=== PATIENT | female | born 1955 | race Caucasian/White ===

== ENCOUNTER → 2020-07-29 14:54 | Outpatient (BNVA) | payer MEDICARE, OTHER, SELFPAY | PROVIDERS: PCP Internal Medicine; Visit Provider Hospitalist | DX: E88.01 Alpha-1-antitrypsin deficiency (principal); J44.9 Chronic obstructive pulmonary disease, unspecified; R06.00 Dyspnea, unspecified | CPT/HCPCS: 99212 ==

== ENCOUNTER 2020-11-04 13:56 | Outpatient (REF) | payer MEDICARE, OTHER, SELFPAY ==
--- NOTE | ~2020-11-04 | XR_ITS ---
EXAMINATION: XR CHEST CLINICAL INFORMATION: Alpha 1 antitrypsin deficiency COMPARISON: Previous chest x-ray July 2019 TECHNIQUE: 2 views of the chest were obtained. FINDINGS: The cardiac and mediastinal contours are stable. The lungs are clear. There is no pleural effusion or pneumothorax. There is curvature of the midthoracic spine to the right and degenerative change. XR/XR chest 2V IMPRESSION: Unremarkable examination.
[2020-11-04 16:42] LABS: MANUAL DIFF FLAG NO
[2020-11-04 16:51] LABS: Basophils Percent Auto 0.4 % (0-2); Eosinophils Absolute Auto 0.2 X10*3/uL (0.0-0.4); Eosinophils Percent Auto 2.1 % (0-4); Hematocrit 43.2 % (37-47); Imm Gran Abs Auto 0.03 X10*3/uL (0.00-0.03); Imm Gran Pct Auto 0.3 % (0.0-0.4); Lymphocytes Absolute Auto 2.3 X10*3/uL (1.2-4.9); Lymphocytes Percent Auto 24.5 % (20-40); Mean Corpuscular HGB Conc 32.4 g/dl (31.0-35.0); Mean Corpuscular Hemoglobin 29.9 pg (27.0-33.0); Mean Corpuscular Volume 92.3 fL (80-98); Mean Platelet Volume 11.9 fL (9.4-12.3); Monocytes Absolute Auto 0.7 X10*3/uL (0.1-1.2); Monocytes Percent Auto 6.9 % (2-11); Neutrophils Absolute Auto 6.2 X10*3/uL (2.0-8.3); Neutrophils Percent Auto 65.8 % (45-73); Platelet Count 227 X10*3/uL (160-400); Red Blood Count 4.68 X10*6/uL (4.20-5.50); Red Cell Distribution Width 13.8 % (11.0-16.0); White Blood Count 9.4 X10*3/uL (4.8-10.8)
[2020-11-04 17:09] LABS: Alanine Aminotransferase 34 U/L (0-31); Albumin Level 4.4 g/dL (3.5-5.0); Alkaline Phosphatase 88 U/L (39-117); Aspartate Amino Transferase 24 U/L (5-31); Bilirubin Direct 0.3 mg/dL (0.0-0.5); Bilirubin Total 0.7 mg/dL (0.0-1.0); Total Protein 7.4 g/dL (6.5-8.0)
--- NOTE | 2020-11-04 17:45 | PFT_ITS ---
INDICATION: Alpha-1 antitrypsin deficiency. SPIROMETRY: The FEV1 to FVC of 77% with an FEV1 of 2.3 L, which is 70% predicted, and an FVC of 2.99 L, which is 69% predicted. No significant response to bronchodilators noted. Maximum voluntary ventilation 105% predicted. LUNG VOLUMES: Total lung capacity 84% predicted. DIFFUSION CAPACITY: DLCO 65% predicted. COMPARISON: PFTs from September 30, 2019. INTERPRETATION: No obstructive nor restrictive ventilatory defects identified. No significant response to bronchodilators noted. Normal maximum voluntary ventilation. Lung volumes do demonstrate low normal total lung capacity, and a decreased expiratory reserve volume secondary to an elevated BMI. The patient also has a mild diffusion impairment. When compared to 2019, there is a trend decrease in the FVC, trend increase in the FEV1, significant decrease in the total lung capacity, and a trend increase improvement on her diffusion capacity. Clinical correlation warranted. MD LILO Morales/SANDIE / [id number]
[2020-11-04 17:59] LABS: Erythrocyte Sedimentation Rate 11 MM/HR (0-20)
[2020-11-07 17:46] LABS: Alpha 1 Anti-trypsin 107 mg/dL (83-199)
[2020-11-08 20:22] LABS: Immunoglobulin E 188 kU/L (<OR=114)
== END 2020-11-04 13:57 | disposition home or self-care (01) ==
LOC: HO.RESP 13:56
PROVIDERS: PCP Physician Assistant Medical; Visit Provider Hospitalist
DX: J44.9 Chronic obstructive pulmonary disease, unspecified (principal)
CPT/HCPCS: 36415; 71046; 80076; 82103; 82785; 85025; 85652; 94060; 94727; 94729; 99212

== ENCOUNTER → 2021-05-19 15:02 | Outpatient (BNVA) | payer MEDICARE, OTHER, SELFPAY | PROVIDERS: PCP Physician Assistant Medical; Visit Provider Hospitalist | DX: R06.00 Dyspnea, unspecified (principal); R91.8 Other nonspecific abnormal finding of lung field; J41.0 Simple chronic bronchitis; E88.01 Alpha-1-antitrypsin deficiency; M79.89 Other specified soft tissue disorders | CPT/HCPCS: 99212 ==

== ENCOUNTER 2021-06-09 12:56 | Outpatient (REF) | payer MEDICARE, OTHER, SELFPAY ==
--- NOTE | ~2021-06-09 | CT_ITS ---
EXAMINATION: CT CHEST WITHOUT CONTRAST CLINICAL INFORMATION: Alpha-1 antitrypsin deficiency COMPARISON: Previous chest x-ray most recent October 2020 TECHNIQUE: Multidetector volumetric CT imaging of the chest was done. Axial MIP volume rendering provided. Sagittal and coronal reformatted images were obtained. This CT examination was performed using dose optimization techniques as appropriate, variously including the following: *Automated exposure control *Adjustment of mA and/or kV according to patient size (this includes techniques or standardized protocols for targeted exams where dose is matched to indication/reason for exam; i.e. extremities or head) *Use of iterative reconstruction technique DLP: 382 mGy-cm FINDINGS: LUNGS: There is a 3 mm perivascular left upper lobe nodule axial image 281 series 7. There is a 2 mm right lower lobe nodule axial image 376 series 7. There is a 2 mm right lower lobe nodule axial image 280 series 7. There is subsegmental atelectasis seen at the lung bases. The lungs are otherwise clear. No evidence of emphysema, interstitial lung disease or bronchiectasis is seen. MEDIASTINUM: The heart does not appear enlarged. There is no pericardial effusion. There is mild coronary artery and aortic valve calcification. The thoracic aorta is normal in caliber but tortuous. There are no enlarged hilar or mediastinal lymph nodes. The visualized thyroid gland is unremarkable. PLEURA: There is no pleural effusion. No pleural mass or thickening. AXILLA: No lymphadenopathy. UPPER ABDOMEN: Unremarkable. OSSEOUS STRUCTURES: There are degenerative changes of the thoracic spine and curvature to the right. CT/CT chest wo con IMPRESSION: No evidence of emphysema. Small pulmonary nodules or micronodules, largest measuring 3 mm in the left upper lobe. According to the UPDATED 2017 Fleischner Society recommendations, the advised follow-up imaging for less than 6 mm nodule: Low risk, no chest CT follow-up and high risk, optional chest CT follow-up in one year. Mild coronary artery and aortic valve calcification.
== END 2021-06-09 12:57 | disposition home or self-care (01) ==
LOC: HO.CT 12:56
PROVIDERS: PCP Physician Assistant Medical; Visit Provider Hospitalist
DX: R91.8 Other nonspecific abnormal finding of lung field (principal); E88.01 Alpha-1-antitrypsin deficiency
CPT/HCPCS: 71250

== ENCOUNTER → 2021-11-17 13:02 | Outpatient (BNVA) | payer MEDICARE, OTHER, SELFPAY | PROVIDERS: PCP Physician Assistant Medical; Visit Provider Hospitalist | DX: J41.0 Simple chronic bronchitis (principal); R06.00 Dyspnea, unspecified; R91.8 Other nonspecific abnormal finding of lung field; M79.89 Other specified soft tissue disorders; E88.01 Alpha-1-antitrypsin deficiency; Z79.899 Other long term (current) drug therapy | CPT/HCPCS: 99212 ==

== ENCOUNTER 2022-05-17 08:57 | Outpatient (REF) | payer MEDICARE, OTHER, SELFPAY | END 2022-05-17 08:58 | disposition home or self-care (01) | LOC: HO.CT 08:57 | PROVIDERS: Visit Provider Hospitalist | DX: R91.8 Other nonspecific abnormal finding of lung field (principal) | CPT/HCPCS: 71250 ==

== ENCOUNTER → 2022-06-15 13:09 | Outpatient (BNVA) | payer MEDICARE, OTHER, SELFPAY | PROVIDERS: PCP Physician Assistant Medical; Visit Provider Hospitalist | DX: R06.00 Dyspnea, unspecified (principal); R91.8 Other nonspecific abnormal finding of lung field; J41.0 Simple chronic bronchitis; E88.01 Alpha-1-antitrypsin deficiency; M79.89 Other specified soft tissue disorders; Z87.891 Personal history of nicotine dependence | CPT/HCPCS: 99212 ==

== ENCOUNTER 2023-06-14 07:19 | Outpatient (REF) | payer MEDICARE, OTHER, SELFPAY ==
--- NOTE | ~2023-06-14 | CT_ITS ---
EXAMINATION: CT CHEST WITHOUT CONTRAST CLINICAL INFORMATION: Follow-up pulmonary nodule COMPARISON: Previous chest CT most recent May 2022 TECHNIQUE: Multidetector volumetric CT imaging of the chest was done. Axial MIP volume rendering provided. Sagittal and coronal reformatted images were obtained. This CT examination was performed using dose optimization techniques as appropriate, variously including the following: *Automated exposure control *Adjustment of mA and/or kV according to patient size (this includes techniques or standardized protocols for targeted exams where dose is matched to indication/reason for exam; i.e. 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 The small pulmonary nodules are otherwise stable. There is increasing subsegmental atelectasis at the lung bases. MEDIASTINUM: Increasing now small to moderate size pericardial effusion. Normal heart size. Coronary artery and aortic valve calcified. Small mediastinal lymph nodes. No enlarged lymph nodes. CORONARY ARTERY CALCIFICATION: Mild to moderate PLEURA: There is no pleural effusion. No pleural mass or thickening. AXILLA: No lymphadenopathy. UPPER ABDOMEN: Unremarkable. OSSEOUS STRUCTURES: Degenerative changes of the spine. Curvature of the thoracic spine to the right. CT/CT chest wo IV con IMPRESSION: New small clustered heterogeneous right upper lobe nodules. These may represent tree-in-bud appearance or airways disease. Otherwise pulmonary nodules are stable. Increasing bibasilar subsegmental atelectasis. Increasing now small to moderate size pericardial effusions. Fleischner guidelines were followed.
== END 2023-06-14 07:20 | disposition home or self-care (01) ==
LOC: HO.CT 07:19
PROVIDERS: PCP Physician Assistant Medical; Visit Provider Hospitalist
DX: R91.8 Other nonspecific abnormal finding of lung field (principal)
CPT/HCPCS: 71250

== ENCOUNTER 2023-08-15 12:59 | Outpatient (AMB) | payer MEDICARE, OTHER, SELFPAY ==
--- NOTE | 2023-08-15 13:03 | MHC.OFFVIS ---
Intake Vital Signs 08/15/23 13:04 Height 6 ft 1 in Weight 285 lb BMI 37.6 BP 132/78 Blood Pressure Location Rt brachial Position Sitting Pulse 67 Pulse Source Pulse Oximeter Pulse Oximetry (%) 98 Oxygen Delivery Method Room Air Intake Visit Reasons: pulmonary nodule Allergies No Known Allergies Allergy (Verified 08/15/23 13:07) HPI HPI Comments History of Present Illness Details The patient is a 68-year-old woman with known alpha-1 antitrypsin deficiency with MZ. She has been doing well on the current respiratory regimen. She has tried multiple inhalers but Advair Diskus works best for her. She did have a recent respiratory illness requiring a Z-Jose Luis in addition to a prednisone taper about a month ago. More recently after the holiday she was exposed to all the sick contact now has nasal congestion and runny nose. She continues use her respiratory inhalers as prescribed. She hasn't had breathing studies in more than a year. Will also have her check her off 1 levels when she recovers from her current illness. She did have an EKG which demonstrated some decreased conduction of the anterior precordial leads. The patient denies having a cardiac history or any cardiac symptoms. She has noticed some increased lower extremity edema. 08/15/2023 the patient is here for a pulmonary follow-up visit. Overall the patient is feeling better. She has had a very eventful year. Back over the summer she did have a total knee replacement. She tolerated the surgery well. Subsequently after that she developed atrial fibrillation and has required multiple cardioversions for that. She also underwent a recent cardiac ablation. she was also placed on amiodarone. Her amiodarone dose was increased a couple times but now back to a lower dose of 200 mg daily. The patient is aware that she has underlying pulmonary disease and needs to be very careful with high doses of amiodarone. The patient will have close monitoring for me but also should have liver and thyroid testing by the prescriber. In meantime we did review her last CT scan of the chest done in June 2023 demonstrating new pulmonary nodules in the right upper lobe area. In addition to that the patient does have a nszy-fk-ocatitda pericardial effusion. She did have an echocardiogram and this visit being followed. She actually try to have that drained but during the procedure she did not have enough fluid to drain. Therefore the procedure was terminated. She continues use her respiratory therapy with good effect. She is responded well to Trelegy. She has not using her rescue inhaler based on the fact that she has the atrial fibrillation now. She does continue to use the Daliresp. She has also had significant weight loss which is been very helpful in her recovery process. Will continue with current respiratory regimen. Will follow-up in 6 months' time. . [facility] Medical History (Updated 08/15/23 @ 20:00 by Felipe Ibarra MD) Afib Pulmonary nodules Abnormality of lung on chest x-ray Limb swelling Dyspnea COPD (chronic obstructive pulmonary disease) Qkzwt-2-ffzaordwulg deficiency Surgical History (Updated 08/15/23 @ 13:16 by Felipe Ibarra MD) Total knee replacement status Social History (Updated 11/20/21 @ 14:44 by Mckenzie Davila [facility]) Patient Tobacco Use Status: Former Tobacco user Tobacco use type: Cigarette Years Smoked: 25 years Review of Systems Const Denies night sweats and Reports weight loss ENT Denies change in voice, Denies lip swelling, Denies mouth pain, Reports nasal congestion, Reports nasal discharge and Denies tongue swelling Card Denies chest pain, Reports leg edema, Reports palpitations and Reports dyspnea on exertion Resp Reports cough and Reports dyspnea on exertion GI Denies abdominal pain Musc Denies no additional complaints Neuro Denies Neuro-related abnormal movements Psych Denies no additional complaints Endo Reports palpitations Oleg/Lymph Denies easy bleeding and Denies lymphadenopathy Aller/Immun Denies lip swelling and Denies tongue swelling Physical Exam Vital Signs: Last Vital Signs Pulse 67 08/15/23 13:04 BP 132/78 08/15/23 13:04 Pulse Ox 98 08/15/23 13:04 Oxygen Delivery Method Room Air 08/15/23 13:04 BMI result Body Mass Index 37.6 Const General: alert Neck Neck: Yes normal visual inspection, Yes full ROM and Yes no lymphadenopathy Chest Chest palpation & inspection: normal inspection of the chest Resp Auscultation: diminished lung sounds Cardio Rate: regular rate Rhythm: regular rhythm Heart sounds: S1 normal heart sound present and S2 normal heart sound present GI Palpation (GI): Soft to palpation and nontender Auscultation: normal bowel sounds Skin General skin exam: rashes and/or lesions noted Results Reviewed Results Reviewed: [address] [address] [address] Scan Report Signed Patient: Aby Walsh MR#: [id number] : 1955 Acct:[id number] Age/Sex: 68 / F ADM Date: 06/14/23 Loc: HO.CT Attending Dr: Felipe Ibarra MD Ordering Physician: Felipe Ibarra MD Date of Service: 06/14/23 Procedure(s): CT chest wo IV con Accession Number(s): [id number] cc: Felipe Ibarra MD; Jose Arvizu~ EXAMINATION: CT CHEST WITHOUT CONTRAST CLINICAL INFORMATION: Follow-up pulmonary nodule COMPARISON: Previous chest CT most recent May 2022 TECHNIQUE: Multidetector volumetric CT imaging of the chest was done. Axial MIP volume rendering provided. Sagittal and coronal reformatted images were obtained. This CT examination was performed using dose optimization techniques as appropriate, variously including the following: *Automated exposure control *Adjustment of mA and/or kV according to patient size (this includes techniques or standardized protocols for targeted exams where dose is matched to indication/reason for exam; i.e. 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 The small pulmonary nodules are otherwise stable. There is increasing subsegmental atelectasis at the lung bases. MEDIASTINUM: Increasing now small to moderate size pericardial effusion. Normal heart size. Coronary artery and aortic valve calcified. Small mediastinal lymph nodes. No enlarged lymph nodes. CORONARY ARTERY CALCIFICATION: Mild to moderate PLEURA: There is no pleural effusion. No pleural mass or thickening. AXILLA: No lymphadenopathy. UPPER ABDOMEN: Unremarkable. OSSEOUS STRUCTURES: Degenerative changes of the spine. Curvature of the thoracic spine to the right. CT/CT chest wo IV con IMPRESSION: New small clustered heterogeneous right upper lobe nodules. These may represent tree-in-bud appearance or airways disease. Otherwise pulmonary nodules are stable. Increasing bibasilar subsegmental atelectasis. Increasing now small to moderate size pericardial effusions. Fleischner guidelines were followed. Dictated By: Julia Vazquez MD Signed By: <Electronically signed by Julia Vazquez MD in [place]> 06/14/23 1042 DD/ 0801 TD/TT: Cake Cutter Machine: DAIN Assessment & Plan Assessment & Plan (1) Dyspnea: Code(s): R06.00 - Dyspnea, unspecified Qualifiers: Dyspnea type: dyspnea on exertion Qualified Code(s): R06.00 - Dyspnea, unspecified (2) COPD (chronic obstructive pulmonary disease): Code(s): J44.9 - Chronic obstructive pulmonary disease, unspecified Qualifiers: COPD type: chronic bronchitis Chronic bronchitis type: simple Qualified Code(s): J41.0 - Simple chronic bronchitis (3) Alncg-0-grohvklpsqe deficiency: Code(s): E88.01 - Prcwk-6-ntseqwouozd deficiency (4) Limb swelling: Code(s): M79.89 - Other specified soft tissue disorders (5) Pulmonary nodules: Comment: new nodules RUL Code(s): R91.8 - Other nonspecific abnormal finding of lung field (6) Afib: Code(s): I48.91 - Unspecified atrial fibrillation Qualifiers: Atrial fibrillation type: paroxysmal Qualified Code(s): I48.0 - Paroxysmal atrial fibrillation Plan On Amiodaone, no evidence of any significant pneumonitis. Needs to keep an eye on Thyroid and liver involvement Contine Trelegy continue Daliresp 500mcg Weight management Compression stockings 20-[address] scan of the chest in 1 year Bloodwork during the next visit F/U 6 months Orders: Orders Erythrocyte Sedimentation Rate Today E88.01 - Gadrs-2-ykzgbydcbpn deficiency, J44.9 - Chronic obstructive pulmonary disease, unspecified Alpha 1 Anti-trypsin Today E88.01 - Lltls-4-bjqbkbmbkaz deficiency, J44.9 - Chronic obstructive pulmonary disease, unspecified Coding Level of Care Code Est Pt Level 4 (49776) Diagnoses Dyspnea on exertion R06.00 Dyspnea type: dyspnea on exertion Simple chronic bronchitis J41.0 COPD type: chronic bronchitis Chronic bronchitis type: simple Klorc-3-kdeweopwwmx deficiency E88.01 Limb swelling M79.89 Pulmonary nodules R91.8 Paroxysmal atrial fibrillation I48.0 Atrial fibrillation type: paroxysmal Time Spent (min) 17
[2023-08-15 13:04] VITALS: BP 132/78; PULSE 67; O2SAT 98; BMI 37.6
== END 2023-08-15 13:34 | disposition home or self-care (01) ==
PROVIDERS: PCP Physician Assistant Medical; Visit Provider Hospitalist
DX: R06.00 Dyspnea, unspecified (principal); J41.0 Simple chronic bronchitis; E88.01 Alpha-1-antitrypsin deficiency; M79.89 Other specified soft tissue disorders; R91.8 Other nonspecific abnormal finding of lung field; I48.0 Paroxysmal atrial fibrillation
CPT/HCPCS: 99214

== ENCOUNTER → 2023-08-15 12:59 | Outpatient (BNVA) | payer MEDICARE, OTHER, SELFPAY | PROVIDERS: PCP Physician Assistant Medical; Visit Provider Hospitalist | DX: R91.8 Other nonspecific abnormal finding of lung field (principal); J41.0 Simple chronic bronchitis; E88.01 Alpha-1-antitrypsin deficiency; R06.00 Dyspnea, unspecified; M79.89 Other specified soft tissue disorders; I48.0 Paroxysmal atrial fibrillation | CPT/HCPCS: 99212 ==

== ENCOUNTER 2024-02-20 12:40 | Outpatient (AMB) | payer MEDICARE, OTHER, SELFPAY ==
[2024-02-20 12:58] VITALS: PULSE 89; O2SAT 96; BMI 37.6
--- NOTE | 2024-02-20 12:58 | MHC.OFFVIS ---
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 She has been doing well on the current respiratory regimen. She has tried multiple inhalers but Advair Diskus works best for her. She did have a recent respiratory illness requiring a Z-Jose Luis in addition to a prednisone taper about a month ago. More recently after the holiday she was exposed to all the sick contact now has nasal congestion and runny nose. She continues use her respiratory inhalers as prescribed. She hasn't had breathing studies in more than a year. Will also have her check her off 1 levels when she recovers from her current illness. She did have an EKG which demonstrated some decreased conduction of the anterior precordial leads. The patient denies having a cardiac history or any cardiac symptoms. She has noticed some increased lower extremity edema. 08/15/2023 the patient is here for a pulmonary follow-up visit. Overall the patient is feeling better. She has had a very eventful year. Back over the summer she did have a total knee replacement. She tolerated the surgery well. Subsequently after that she developed atrial fibrillation and has required multiple cardioversions for that. She also underwent a recent cardiac ablation. she was also placed on amiodarone. Her amiodarone dose was increased a couple times but now back to a lower dose of 200 mg daily. The patient is aware that she has underlying pulmonary disease and needs to be very careful with high doses of amiodarone. The patient will have close monitoring for me but also should have liver and thyroid testing by the prescriber. In meantime we did review her last CT scan of the chest done in June 2023 demonstrating new pulmonary nodules in the right upper lobe area. In addition to that the patient does have a nfxb-fl-iwbyxqsd pericardial effusion. She did have an echocardiogram and this visit being followed. She actually try to have that drained but during the procedure she did not have enough fluid to drain. Therefore the procedure was terminated. She continues use her respiratory therapy with good effect. She is responded well to Trelegy. She has not using her rescue inhaler based on the fact that she has the atrial fibrillation now. She does continue to use the Daliresp. She has also had significant weight loss which is been very helpful in her recovery process. Will continue with current respiratory regimen. Will follow-up in 6 months' time. 02/20/2024 the patient is here for a pulmonary follow-up visit. Overall she is doing well. She has off the amiodarone. She has been normal sinus mechanism which is reassuring. She is following closely with Cardiology. The patient is doing well on the current respiratory regimen. She has avoiding the short-acting beta agonist because of her atrial fibrillation. She can always consider muscarinic antagonist short-acting as needed. I will provide her with a sample of ipratropium for her nebulizer to use as needed. In the meantime the patient did have a CT scan of the chest back in 07/01/2023 demonstrating stable pulmonary nodules. Will go ahead and repeat the CT scan in a year's time. She will continue with the current respiratory regimen. When she returns will go ahead and repeat her alpha-1 levels. Her alpha-1 levels have been reasonable. She does have alpha-1 antitrypsin deficiency. Otherwise patient is without any other complaints. She is losing weight. . [facility] Medical History (Updated 02/20/24 @ 13:07 by Felipe Ibarra MD) Afib Pulmonary nodules Abnormality of lung on chest x-ray Limb swelling Dyspnea COPD (chronic obstructive pulmonary disease) Xghoz-3-wfqketrrhee deficiency Surgical History (Updated 08/15/23 @ 13:16 by Felipe Ibarra MD) Total knee replacement status Social History (Updated 11/20/21 @ 14:44 by Mckenzie Davila [facility]) Patient Tobacco Use Status: Former Tobacco user Tobacco use type: Cigarette Years Smoked: 25 years Review of Systems Const Denies night sweats and Reports weight loss ENT Denies change in voice, Denies lip swelling, Denies mouth pain, Reports nasal congestion, Reports nasal discharge and Denies tongue swelling Card Denies chest pain, Reports leg edema and Reports dyspnea on exertion Resp Reports cough and Reports dyspnea on exertion GI Denies abdominal pain Musc Denies no additional complaints Neuro Denies Neuro-related abnormal movements Psych Denies no additional complaints Oleg/Lymph Denies easy bleeding and Denies lymphadenopathy Aller/Immun Denies lip swelling and Denies tongue swelling Physical Exam Vital Signs: Last Vital Signs Pulse 89 02/20/24 12:58 Pulse Ox 96 02/20/24 12:58 Oxygen Delivery Method Room Air 02/20/24 12:58 BMI result Body Mass Index 37.6 Const General: alert Neck Neck: Yes normal visual inspection, Yes full ROM and Yes no lymphadenopathy Chest Chest palpation & inspection: normal inspection of the chest Resp Auscultation: diminished lung sounds Cardio Rate: regular rate Rhythm: regular rhythm Heart sounds: S1 normal heart sound present and S2 normal heart sound present GI Palpation (GI): Soft to palpation and nontender Auscultation: normal bowel sounds Skin General skin exam: rashes and/or lesions noted Assessment & Plan Assessment & Plan (1) Dyspnea: Code(s): R06.00 - Dyspnea, unspecified Category: Medical Qualifiers: Dyspnea type: dyspnea on exertion Qualified Code(s): R06.00 - Dyspnea, unspecified (2) COPD (chronic obstructive pulmonary disease): Code(s): J44.9 - Chronic obstructive pulmonary disease, unspecified Category: Medical Qualifiers: COPD type: chronic bronchitis Chronic bronchitis type: simple Qualified Code(s): J41.0 - Simple chronic bronchitis (3) Lkmvz-6-tlffcdzthob deficiency: Code(s): E88.01 - Xtryd-6-tnfykhozzke deficiency Category: Medical (4) Limb swelling: Code(s): M79.89 - Other specified soft tissue disorders Category: Medical (5) Pulmonary nodules: Comment: new nodules RUL Code(s): R91.8 - Other nonspecific abnormal finding of lung field Category: Medical (6) Afib: Comment: s/p amiodarone Code(s): I48.91 - Unspecified atrial fibrillation Category: Medical Qualifiers: Atrial fibrillation type: paroxysmal Qualified Code(s): I48.0 - Paroxysmal atrial fibrillation Plan Off the Amiodaone Contine Trelegy continue Daliresp 500mcg Weight management Compression stockings 20-[address] scan of the chest in 1 year Bloodwork during the next visit F/U 12 months Coding Level of Care Code Est Pt Level 4 (50348) Diagnoses Dyspnea on exertion R06.00 Dyspnea type: dyspnea on exertion Simple chronic bronchitis J41.0 COPD type: chronic bronchitis Chronic bronchitis type: simple Zbyxo-4-yycosaqlwwx deficiency E88.01 Limb swelling M79.89 Pulmonary nodules R91.8 Paroxysmal atrial fibrillation I48.0 Atrial fibrillation type: paroxysmal Time Spent (min) 16
== END 2024-02-20 13:19 | disposition home or self-care (01) ==
PROVIDERS: PCP Physician Assistant Medical; Visit Provider Hospitalist
DX: R06.00 Dyspnea, unspecified (principal); J41.0 Simple chronic bronchitis; E88.01 Alpha-1-antitrypsin deficiency; M79.89 Other specified soft tissue disorders; R91.8 Other nonspecific abnormal finding of lung field; I48.0 Paroxysmal atrial fibrillation
CPT/HCPCS: 99214

== ENCOUNTER → 2024-02-20 12:40 | Outpatient (BNVA) | payer MEDICARE, OTHER, SELFPAY | PROVIDERS: PCP Physician Assistant Medical; Visit Provider Hospitalist | DX: R91.8 Other nonspecific abnormal finding of lung field (principal); R06.00 Dyspnea, unspecified; J41.0 Simple chronic bronchitis; E88.01 Alpha-1-antitrypsin deficiency; M79.89 Other specified soft tissue disorders; I48.0 Paroxysmal atrial fibrillation | CPT/HCPCS: 99212 ==

== ENCOUNTER 2024-10-09 08:58 | Outpatient (AMB) | payer MEDICARE, OTHER, SELFPAY ==
--- NOTE | 2024-10-09 09:02 | MHC.OFFVIS ---
Vital Signs 10/09/24 09:03 Height 6 ft 1 in Weight 284 lb 6.341 oz BMI 37.5 BP 130/72 Blood Pressure Location Rt brachial Position Sitting Pulse 84 Pulse Source Pulse Oximeter Pulse Oximetry (%) 99 Oxygen Delivery Method Room Air Intake Visit Reasons: 6 month spot actually 7 months Allergies No Known Allergies Allergy (Verified 10/09/24 09:05) HPI Comments Details: The patient is a 69-year-old woman with known alpha-1 antitrypsin deficiency with MZ. She has been doing well on the current respiratory regimen. She has tried multiple inhalers but Advair Diskus works best for her. She did have a recent respiratory illness requiring a Z-Jose Luis in addition to a prednisone taper about a month ago. More recently after the holiday she was exposed to all the sick contact now has nasal congestion and runny nose. She continues use her respiratory inhalers as prescribed. She hasn't had breathing studies in more than a year. Will also have her check her off 1 levels when she recovers from her current illness. She did have an EKG which demonstrated some decreased conduction of the anterior precordial leads. The patient denies having a cardiac history or any cardiac symptoms. She has noticed some increased lower extremity edema. 08/15/2023 the patient is here for a pulmonary follow-up visit. Overall the patient is feeling better. She has had a very eventful year. Back over the summer she did have a total knee replacement. She tolerated the surgery well. Subsequently after that she developed atrial fibrillation and has required multiple cardioversions for that. She also underwent a recent cardiac ablation. she was also placed on amiodarone. Her amiodarone dose was increased a couple times but now back to a lower dose of 200 mg daily. The patient is aware that she has underlying pulmonary disease and needs to be very careful with high doses of amiodarone. The patient will have close monitoring for me but also should have liver and thyroid testing by the prescriber. In meantime we did review her last CT scan of the chest done in June 2023 demonstrating new pulmonary nodules in the right upper lobe area. In addition to that the patient does have a jytq-nt-ggmjhiti pericardial effusion. She did have an echocardiogram and this visit being followed. She actually try to have that drained but during the procedure she did not have enough fluid to drain. Therefore the procedure was terminated. She continues use her respiratory therapy with good effect. She is responded well to Trelegy. She has not using her rescue inhaler based on the fact that she has the atrial fibrillation now. She does continue to use the Daliresp. She has also had significant weight loss which is been very helpful in her recovery process. Will continue with current respiratory regimen. Will follow-up in 6 months' time. 02/20/2024 the patient is here for a pulmonary follow-up visit. Overall she is doing well. She has off the amiodarone. She has been normal sinus mechanism which is reassuring. She is following closely with Cardiology. The patient is doing well on the current respiratory regimen. She has avoiding the short-acting beta agonist because of her atrial fibrillation. She can always consider muscarinic antagonist short-acting as needed. I will provide her with a sample of ipratropium for her nebulizer to use as needed. In the meantime the patient did have a CT scan of the chest back in 07/01/2023 demonstrating stable pulmonary nodules. Will go ahead and repeat the CT scan in a year's time. She will continue with the current respiratory regimen. When she returns will go ahead and repeat her alpha-1 levels. Her alpha-1 levels have been reasonable. She does have alpha-1 antitrypsin deficiency. Otherwise patient is without any other complaints. She is losing weight. 10/09/2024 the patient is here for a pulmonary follow-up visit. Overall she is doing good from respiratory status. She did get her ablation for the AFib and has been good. The patient also has been continue her respiratory therapy with good effect. She tolerates her Daliresp very well. The patient did have a CT scan back in 2022 which we personally reviewed demonstrating pulmonary nodules. Because of her increased risk of cancer she should have reviewed CT scan at this time. The patient is also taking care of her was recently diagnosed with lung cancer and apparently is going to need surgery for. When she comes in for CT scan I did request that she get blood work including an alpha-1 level in addition to LFTs to make sure the alpha-1 antitrypsin deficiency is stable. . [facility] Medical History (Updated 02/20/24 @ 13:07 by Felipe Ibarra MD) Afib Pulmonary nodules Abnormality of lung on chest x-ray Limb swelling Dyspnea COPD (chronic obstructive pulmonary disease) Iyinv-1-nwkalmvajrx deficiency Surgical History (Updated 08/15/23 @ 13:16 by Felipe Iabrra MD) Total knee replacement status Social History Patient Tobacco Use Status: Former Tobacco user Tobacco use type: Cigarette Years Smoked: 25 years Review of Systems Const Denies night sweats and Reports weight loss ENT Denies change in voice, Denies lip swelling, Denies mouth pain, Reports nasal congestion, Reports nasal discharge and Denies tongue swelling Card Denies chest pain, Reports leg edema and Reports dyspnea on exertion Resp Reports cough and Reports dyspnea on exertion GI Denies abdominal pain Musc Denies no additional complaints Skin/Breast Denies rash Neuro Denies Neuro-related abnormal movements Psych Denies no additional complaints Oleg/Lymph Denies easy bleeding and Denies lymphadenopathy Aller/Immun Denies lip swelling and Denies tongue swelling Physical Exam Vital Signs: Last Vital Signs Pulse 84 10/09/24 09:03 BP 130/72 10/09/24 09:03 Pulse Ox 99 10/09/24 09:03 Oxygen Delivery Method Room Air 10/09/24 09:03 BMI result Body Mass Index 37.5 Const General: alert Neck Neck: Yes normal visual inspection, Yes full ROM and Yes no lymphadenopathy Chest Chest palpation & inspection: normal inspection of the chest Resp Auscultation: diminished lung sounds Cardio Rate: regular rate Rhythm: regular rhythm Heart sounds: S1 normal heart sound present and S2 normal heart sound present GI Palpation (GI): Soft to palpation and nontender Auscultation: normal bowel sounds Skin General skin exam: rashes and/or lesions noted Assessment & Plan Assessment & Plan (1) Dyspnea: Code(s): R06.00 - Dyspnea, unspecified Category: Medical Qualifiers: Dyspnea type: dyspnea on exertion Qualified Code(s): R06.00 - Dyspnea, unspecified (2) COPD (chronic obstructive pulmonary disease): Code(s): J44.9 - Chronic obstructive pulmonary disease, unspecified Category: Medical Qualifiers: COPD type: chronic bronchitis Chronic bronchitis type: simple Qualified Code(s): J41.0 - Simple chronic bronchitis (3) Nubpm-6-dnkydurlkjz deficiency: Code(s): E88.01 - Rlmtl-3-ajvydfgifeo deficiency Category: Medical (4) Limb swelling: Code(s): M79.89 - Other specified soft tissue disorders Category: Medical (5) Pulmonary nodules: Comment: new nodules RUL Code(s): R91.8 - Other nonspecific abnormal finding of lung field Category: Medical (6) Afib: Comment: s/p amiodarone Code(s): I48.91 - Unspecified atrial fibrillation Category: Medical Qualifiers: Atrial fibrillation type: paroxysmal Qualified Code(s): I48.0 - Paroxysmal atrial fibrillation Plan Off the Amiodaone Continue Trelegy continue Daliresp 500mcg Weight management Compression stockings 20-[address] scan of the chest Bloodwork during the next visit F/U 12 months Orders: Orders Basic Metabolic Panel 10/09/24 E88.01 - Kzkmm-5-vfquhsocsok deficiency, R91.8 - Other nonspecific abnormal finding of lung field CT chest wo IV con 10/09/24 R91.8 - Other nonspecific abnormal finding of lung field Alpha 1 Anti-trypsin 10/09/24 E88.01 - Cwixx-0-uzoftwhzgxp deficiency, R91.8 - Other nonspecific abnormal finding of lung field Liver Panel 10/09/24 E88.01 - Daohf-3-pltztoctgel deficiency, R91.8 - Other nonspecific abnormal finding of lung field Coding Level of Care Code Est Pt Level 4 (28687) Diagnoses Dyspnea on exertion R06.00 Dyspnea type: dyspnea on exertion Simple chronic bronchitis J41.0 COPD type: chronic bronchitis Chronic bronchitis type: simple Efbts-6-lbdxjzydaou deficiency E88.01 Limb swelling M79.89 Pulmonary nodules R91.8 Paroxysmal atrial fibrillation I48.0 Atrial fibrillation type: paroxysmal Time Spent (min) 17
[2024-10-09 09:03] VITALS: BP 130/72; PULSE 84; O2SAT 99; BMI 37.5
--- OUTSIDE RECORDS SUMMARY | 2024-10-09 09:22 | XMS_ITS | Clinical Summary ---
Author Organization [facility] Address [address] [place] [address] Care Team Providers Care Therapy Teacher Name Role Phone Jose Arvizu PA-C Primary Care Provider Allergies No known active allergies Medications Medication Sig Dispensed Refills Start Date End Date Status losartan (COZAAR) 100 MG tablet Take 100 mg by mouth daily. 5 03/08/2018 Active metFORMIN (GLUCOPHAGE) tablet 500 mg TAKE 1 TABLET BY MOUTH TWICE A DAY WITH FOOD 3 03/07/2018 Active montelukast (SINGULAIR) 10 MG tablet Take 10 mg by mouth every evening. 3 07/20/2018 Active omeprazole (PriLOSEC) 20 MG capsule TAKE 1 CAPSULE BY MOUTH EVERY DAY FOR 360 DAYS 5 07/09/2018 Active zolpidem (AMBIEN) 5 MG tablet Take 5 mg by mouth every night at bedtime as needed. for insomnia 0 08/06/2018 Active ezetimibe (ZETIA) tablet 10 mg Take 1 tablet (10 mg total) by mouth daily. 0 05/07/2022 Active Trelegy Ellipta 200-62.5-25 MCG/ACT AEPB INHALE 1 PUFF ONCE DAILY FOR 30 DAYS 0 05/26/2022 Active traMADol (ULTRAM) 50 MG tablet Take 1 tab every 8 hours as needed for pain 50 tablet 0 08/22/2022 Active Family History Medical History Relation Name Comments Hypertension Brother Hypertension Sister Relation Name Status Comments Brother Sister Social History Tobacco Use Types Packs/Day Years Used Date Smoking Tobacco: Never Assessed Sex and Gender Information Value Date Recorded Sex Assigned at Not on file Gender Identity Not on file Sexual Orientation Not on file Job Start Date Occupation Industry Not on file Not on file Not on file Last Filed Vital Signs Vital Sign Reading Time Taken Comments Blood Pressure - - Pulse - - Temperature - - Respiratory Rate - - Oxygen Saturation - - Inhaled Oxygen Concentration - - Weight 131.5 kg (290 lb) 07/25/2022 1:49 PM EST Height 185.4 cm (6' 1 ) 07/25/2022 1:49 PM EST Body Mass Index 38.26 07/25/2022 1:49 PM EST Plan of Treatment Health Maintenance Due Date Last Done Comments Hepatitis C Screening 1954 Depression Screening 1966 BMI Counseling 1972 Preventative Health Evaluation 1972 Colon Cancer Screening (Colonoscopy) 1999 Breast Cancer Screening (Mammogram) 2004 Fall Risk Assessment 2019 Osteoporosis Screening (DEXA Scan) 2019 COVID-19 Vaccine ( season) 2024 02/23/2022, 05/31/2021, 09/24/2020, Additional history exists Influenza Vaccine (#1) 2024 2, 05/25/2021, 04/25/2020 Pneumococcal Vaccine (3 of 3 - PPSV23 or PCV20) 05/28/2024 05/28/2019, 10/31/2017 DTap / Tdap / Td (2 - Td or Tdap) 05/15/2027 05/15/2017 RSV Adult > 60+ Yrs or (1 - 1-dose 75+ series) 2029 Shingrix-Zoster Vaccine Completed 04/24/2019, 02/25 Hepatitis B Vaccines Aged Out No long er eligible based on patient's age to complete this topic RSV Ped < 20 months Aged Out No longe r eligible based on patient's age to complete this topic Care Teams Therapy Teacher Relationship Specialty Start Date End Date Jose Arvizu PA-C PCP - General Medical Services 07/23/22
--- OUTSIDE RECORDS SUMMARY | 2024-10-09 09:22 | XMS_ITS ---
Author Name [facility] Organization Unknown History of Medication Use Medication Directions Dispensed Refills Start Date End Date Stat Ozempic 2 mg/dose (8 mg/3 mL) subcutaneous pen injector INJECT 2 MG INTO THE SKIN ONCE A WEEK. active triamcinolone acetonide 40 mg/mL suspension for injection active doxepin 10 mg capsule TAKE 1 CAPSULE BY MOUTH AT BEDTIME FOR 360 DAYS. 4 completed benzonatate 100 mg capsule TAKE 1 CAPSULE BY MOUTH 3 TIMES DAILY NEEDED FOR COUGH FOR UP TO 10 DAYS. 3 completed tramadol 50 mg tablet TAKE 1 TABLET BY MOUTH EVERY 8 HOURS NEEDED FOR PAIN 3 completed losartan 50 mg tablet TAKE 1 TABLET BY MOUTH EVERY DAY 3 completed Tiadylt ER 240 mg capsule,extended release TAKE 1 CAPSULE BY MOUTH EVERY DAY 3 completed valacyclovir 1 gram tablet TAKE 1 TABLET BY MOUTH THREE TIMES A DAY FOR 7 DAYS 3 completed sodium fluoride 1.1 % dental paste PLEASE SEE ATTACHED FOR DETAILED DIRECTIONS 3 completed ondansetron 4 mg disintegrating tablet 3 completed azelaic acid 15 % topical gel APPLY TO AFFECTED AREAS 2 TIMES A DAY FOR ROSACEA ON FACE 4 completed minoxidil 2.5 mg tablet TAKE ONE- HALF TABLET BY MOUTH DAILY active amiodarone 400 mg tablet 4 active metoprolol succinate ER 50 mg tablet,extended release 24 hr TAKE 1 TABLET BY MOUTH EVERY DAY active Trelegy Ellipta 100 mcg-62.5 mcg-25 mcg powder for inhalation INHALE 1 PUFF BY MOUTH DAILY active Narcan 4 mg/actuation nasal spray take by nasal route as needed 03/07/2023 active Ozempic 0.25 mg or 0.5 mg (2 mg/3 mL) subcutaneous pen injector INJECT 0.5 MG INTO THE SKIN EVERY 7 DAYS. 4 active Marcaine (PF) 0.5 % (5 mg/mL) injection solution Take 4 mL by injection route. 04/17/2024 4 active Matzim LA 360 mg tablet,extended release TAKE 1 TABLET BY MOUTH EVERY DAY 3 active triamcinolone acetonide 40 mg/mL suspension for injection active triamcinolone acetonide 40 mg/mL suspension for injection Take 40 mg by injection route. 01/10/2024 4 active azelaic acid 15 % topical gel APPLY TO AFFECTED AREAS 2 TIMES A DAY FOR ROSACEA ON FACE active metformin 500 mg tablet TAKE 1 TABLET BY MOUTH TWICE A DAY WITH FOOD 4 active Trelegy Ellipta 200 mcg-62.5 mcg-25 mcg powder for inhalation INHALE 1 PUFF ONCE DAILY FOR 30 DAYS 3 completed doxepin 10 mg capsule TAKE 1 CAPSULE BY MOUTH AT BEDTIME FOR 360 DAYS. active Flowflex COVID-19 Antigen Home Test kit USE DIRECTED 3 completed zolpidem 5 mg tablet TAKE 1 TABLET BY MOUTH EVERY DAY AT BEDTIME NEEDED FOR INSOMNIA 4 active amiodarone 200 mg tablet TAKE 1 TABLET BY MOUTH EVERY DAY 4 completed trazodone 50 mg tablet TAKE 1 TO 3 TABLET BY MOUTH AT BEDTIME NEEDED FOR SLEEP 3 completed Trelegy Ellipta 100 mcg-62.5 mcg-25 mcg powder for inhalation INHALE 1 PUFF BY MOUTH DAILY active tramadol 50 mg tablet TAKE 1 TABLET BY MOUTH EVERY 8 HOURS NEEDED FOR PAIN 3 completed lidocaine (PF) 100 mg/5 mL (2 %) injection syringe Take 4 mL by injection route. 04/17/2024 4 active ramelteon 8 mg tablet TAKE 1 TABLET BY MOUTH EVERYDAY AT BEDTIME 4 completed cefdinir 300 mg capsule TAKE 1 CAPSULE BY MOUTH EVERY 12 HOURS FOR 7 DAYS 3 completed meloxicam 15 mg tablet 3 completed lidocaine (PF) 10 mg/mL (1 %) injection solution Take 1 mL by injection route. 01/10/2024 active lidocaine (PF) 10 mg/mL (1 %) injection solution active triamcinolone acetonide 0.025 % topical cream APPLY THIN AMOUNT TO AREAS OF ECZEMA ON GROIN AND UNDER BREAST FOR 7 DAYS WHEN NEEDED. 3 active losartan 50 mg tablet TAKE 1 TABLET BY MOUTH EVERY DAY 3 completed furosemide 20 mg tablet TAKE 1 TABLET BY MOUTH DAILY NEEDED FOR OTHER (LEG SWELLING). active triamcinolone acetonide 0.025 % topical cream APPLY THIN AMOUNT TO AREAS OF ECZEMA ON GROIN AND UNDER BREAST FOR 7 DAYS WHEN NEEDED. 4 completed montelukast 10 mg tablet TAKE 1 TABLET BY MOUTH AT BEDTIME active naloxone 4 mg/actuation nasal spray TAKE BY NASAL ROUTE NEEDED 3 completed Xarelto 20 mg tablet TAKE 1 TABLET BY MOUTH EVERY DAY active Xarelto 10 mg tablet 3 completed meloxicam 15 mg tablet 3 completed zaleplon 5 mg capsule TAKE 1 CAPSULE BY MOUTH AT BEDTIME FOR 28 DAYS. active sertraline 50 mg tablet TAKE 1 TABLET BY MOUTH DAILY active metoprolol tartrate 25 mg tablet TAKE 1 TABLET BY MOUTH ONCE TAKE 10/14/22 EVENING ONE TIME DOSE. 3 completed lidocaine (PF) 10 mg/mL (1 %) injection solution Take 1 mL by injection route. 01/10/2024 4 completed amiodarone 200 mg tablet TAKE 1 TABLET BY MOUTH EVERY DAY active ezetimibe 10 mg tablet TAKE 1 TABLET BY MOUTH EVERY DAY active cefdinir 300 mg capsule TAKE 1 CAPSULE BY MOUTH EVERY 12 HOURS FOR 7 DAYS 3 completed oxycodone 5 mg tablet Take 1 tab every 8-10 hours as needed for pain. 03/07/2023 4 active ramelteon 8 mg tablet TAKE 1 TABLET BY MOUTH EVERYDAY AT BEDTIME active Problems Problem Status Onset Date Problem Type Date of Resoluti on Source Foot pain active 2023-03-07 ProblemAct [facility]_AONE CT History of left total knee replacement active 2023-03-29 ProblemAct [facility] Osteoarthritis of left knee joint active 2023-01-04 ProblemAct [facility] Osteoarthritis of knee active 2022-10-30 ProblemAct [facility] Radial styloid tenosynovitis active 2024-01-10 ProblemAct [facility] Digital mucous cyst of right hand active 2023-02-15 ProblemAct [facility] Pain of left knee joint active 2023-07-19 ProblemAct [facility] Osteoarthritis of finger joint of right hand active 2024-01-10 ProblemAct [facility] [address] Pain in finger active 2023-02-15 ProblemAct [facility] _[facility]
--- OUTSIDE RECORDS SUMMARY | 2024-10-09 09:22 | XMS_ITS | Data Portability ---
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 ?The patient is experiencing right knee pain, which is moderate in intensity, and has recently worsened. The pain limits some activities of daily living. Walking tolerance is reduced. Pain and restriction of function are moderate at this time. She has not done any recent treatments for her right knee. It is causing increasing pain. Review of systems is negative for other rapidly progressive neurological disorder, chest pain, shortness of breath, fevers, chills, or any signs of active or persistent local or systemic infection. Physical Exam ? ? ?: Patient is well nourished, well-developed, in no acute distress, with appropriate mood and affect. The patient is oriented to time, place, and person. Examination of the contralateral knee shows normal range of motion, strength, no tenderness, and well-healed skin incision The affected limb is well-perfused, without skin lesions, shows a grossly normal motor and sensory examination. Right knee motion is reduced and does cause significant pain. The right knee moves from 5-125 degrees. The knees are stable within those [id number]. The alignment of the right knee is neutral . Muscle strength is normal. Pedal pulses are palpable. Hip examination, including flexion and internal rotation, was negative in that groin pain was not produced. Assessment/Plan ? ? ?: The patient has right knee arthritis. An extensive discussion was conducted on the natural history of the disease and the variety of surgical and non-surgical options available to the patient including, but not limited to non-steroidal anti-inflammatory medications, steroid injections, viscosupplementat ion, physical therapy, maintenance of ideal body weight, and reduction of activity. Plan for right knee corticosteroid injection today. Follow-up in 4 months with reevaluation at that time. If her right hip is still bothering her at that time we can get right hip x-rays as well. Not available 04/17/2024 13:19:22 05/14/2024 05/14/2024 The above findings were discussed in detail today with the patient. 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 Pathology instructed prognosis were discussed. Treatment options include continue with conservative treatment, activity modifications, [id number] medications, or consideration for DIP joint fusion. She like to proceed with surgery at this point. Surgery was discussed which would include fusion of the DIP joint. She would lose all motion at the DIP joint but her pain and deformity with improved. She is interested in this option. Risks of surgery were discussed with the patient which include but are not limited to bleeding, infection, injury to nerves, tendons, vessels, pain, stiffness, infection, nonunion, malunion, hardware failure, hardware irritation, non-relief of symptoms, needing more surgery in the future as well as risks of anesthesia. All questions were answered to the patient's satisfaction. They understood these risks and agreed to proceed, consent was obtained today. She is at increased risk for surgery given her medical comorbidities and will require surgery clearance from her in home baby sitter/[facility] physician prior to surgery. Will schedule surgery at her convenience. All of her questions were answered, she is in agreement the plan. Not available 05/14/2024 14:01:03 07/16/2024 07/16/2024 The above findings were discussed in detail today with the patient. She is 2 weeks status post right small finger DIP joint arthrodesis, doing well. Her sutures were removed today. He was given a removable DIP joint splint which she will wear during the day with activities and at sleep, she can take it off when at rest. She should be wearing this for the next 4 weeks. She can work on PIP and MP joint range of motion. She can do scar massage over her incision. She will refrain from soaking the incision or using any oils or lotions until is completely healed likely 1 more week. She can get the incision wet in the shower and pat it dry and keep covered with a Band-Aid. She can resume light activities as long as she is in the splint. I will give her prescription for physical therapy to have a custom splint made. She will return to see me for follow-up in 4 weeks for repeat evaluation. All of her questions were answered, she is in agreement the plan. Not available 07/16/2024 14:11:16 08/13/2024 08/13/2024 The above findings were discussed in detail today with the patient. She is 6 weeks status post right small finger DIP joint fusion, doing well. At this point she does not need to wear the splint any longer. She will continue to work on range of motion of the PIP and MP joints. She can continue with scar massage over the incision, her scab will eventually fall off in the next few weeks. Swelling will continue to improve. She will increase her activities as tolerated. She will have no restrictions in 4 weeks. All of her questions were answered, she is in agreement the plan. She can return to see me for follow-up in 6 weeks for reevaluation. All of her questions were answered, she is in agreement the plan. Not available 08/13/2024 13:33:15 08/21/2024 08/21/2024 HPI : Patient is here for follow-up for her right knee pain. I saw her in April. Performed a right knee corticosteroid injection. She states this brought almost 2 months of relief. The pain is returned. The pain is increased. Pain with weightbearing. She is thinking about surgery, but she wants to hold off for now. We had discussion regarding this. Physical Exam : Patient is well nourished, well-developed, in no acute distress, with appropriate mood and affect. The patient is oriented to time, place, and person. Examination of the contralateral knee shows normal range of motion, strength, no tenderness, and well-healed skin incision The affected limb is well-perfused, without skin lesions, shows a grossly normal motor and sensory examination. Right knee motion is reduced and does cause significant pain. The right knee moves from 5-125 degrees. The knees are stable within those [id number]. The alignment of the right knee is neutral . Muscle strength is normal. Pedal pulses are palpable. Hip examination, including flexion and internal rotation, was negative in that groin pain was not produced. Assessment/Plan : Patient has right knee arthritis. An extensive discussion was conducted on the natural history of the disease and the variety of surgical and non-surgical options available to the patient including, but not limited to non-steroidal anti-inflammatory medications, steroid injections, viscosupplementat ion, physical therapy, maintenance of ideal body weight, and reduction of activity. Plan for right knee corticosteroid injection today. She is debo follow-up in 4 to 5 months with reevaluation and repeat x-rays at that time. Not available 08/21/2024 09:05:16 Plan of Treatment Reminders Order Date Submit Date Provider Last Modified By Organization Details Last Modified Time Details Appointments FOLLOW UP 2024 08:45A Thaddeus Petit MD Not available Not available Not available Lab None recorded. Referral None recorded. Procedures None recorded. Surgeries orthopaed ic surgery - other (SURG) 2023 024 [facility], [address], [place], [address], 07/03/2024 09:02:27 Imaging XR, finger(s) , 2 or more view 2024 025 barbara pederson [facility], [address], [place], [address], 08/13/2024 15:54:48 XR, finger(s) , 2 or more view 2023 024 [facility], [address], [place], [address], 07/16/2024 14:11:58 XR, knee, 1 or 2 view 2023 024 [facility], [address], [place], [address], 04/17/2024 13:19:49 Medication Orders Marcaine (PF) 0.5 % (5 mg/mL) injection solution 2024 025 [id number], [address] [place], [address], 08/21/2024 09:39:13 lidocaine (PF) 100 mg/5 mL (2 %) injection syringe 2024 025 [id number], [address] [place], [address], 08/21/2024 09:39:13 triamcino lone acetonide 40 mg/mL suspensio n for injection 2024 025 [id number], [address] [place], [address], 08/21/2024 09:39:13 Marcaine (PF) 0.5 % (5 mg/mL) injection solution 2023 024 [id number], [address] [place], [address], 05/14/2024 13:11:18 lidocaine (PF) 100 mg/5 mL (2 %) injection syringe 2023 024 [id number], [address] [place], [address], 05/14/2024 13:11:14 triamcino lone acetonide 40 mg/mL suspensio n for injection 2023 024 [id number], [address] [place], [address], 05/14/2024 13:11:27 Patient TargetsNo targets recorded. Patient Instructions Encounter Date Encounter Id Patient Instructions Last Modified By Organization Details Last Modified Time 04/17/2024 [id number] Lateral x-ray of the right knee along with x-rays AP and lateral of the right knee from last month demonstrate right knee degenerative joint disease with joint space narrowing, osteophyte formation, and subchondral sclerosis. These changes are most significant in the medial compartment. Not available 04/17/2024 13:17:30 05/14/2024 [id number] views of the right small finger ordered on 01/10/2024 reveal for review and interpreted today, this demonstrates DIP joint arthritis with joint space narrowing and osteophyte formation. There is no significant angular deformity or subluxation. Maintained joint space at the PIP and MP joint. Good mineralization of the bones. Not available 05/14/2024 13:59:42 07/16/2024 [id number] Views of the rig ht small finger were ordered and reviewed today, this demonstrates hardware in place without evidence of migration or failure. There is excellent alignment of the distal phalanx on the middle phalanx. No acute findings noted. Not available 07/16/2024 14:10:18 08/13/2024 [id number] views of the right small finger were ordered and reviewed today, this demonstrates hardware in place across the DIP joint with evidence of healing at the DIP joint. Maintained alignment at arthrodesis site. No evidence of hardware breakage or failure. Not available 08/13/2024 13:32:08 Reason for Referral None Reported. Problems Name Problem SNOMED Code Status Onset Date Resolution Date Notes Provider Name and Address Organization Details Recorded Time Pain in finger 01784195 Active 2022 Hannah Suárez null, [place] [facility] 09:08:49 Digital mucous cyst of right hand 9391948874184 103 Active 2022 LATHA GREY PA-C [address], [place], [address], [place] [facility] 09:35:27 Foot pain 18406674 Active 2022 MILDRED GONSALEZ PA-C [address], [facility] [place], [address], [place] [facility] 09:13:22 History of left total knee replacement 3485145941647 105 Active 2022 Tino Petit MD [address], [place], [address], [place] [facility] 3 14:45:53 Pain of left knee joint 9470141760049 07 Active 2022 Tino Petit MD [address], [place], [address], [place] [facility] 3 08:47:19 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 8145565254495 9104 Active 2023 Marcela whitley MD [address], [place], [address], [place] [facility] 4 12:40:33 Radial styloid tenosynovit is 95560580 Active 2023 Marcela whitley MD [address], [place], [address], [place] [facility] 4 12:40:44 Osteoarthri tis of knee 790602267 Active 2022 Charles Fisher MD [address], [place], [address], [place] [facility] 3 11:18:38 Osteoarthri tis of left knee joint 1207839690099 09 Active 2022 Tino Petit MD [address], [place], [address], [place] [facility] 3 10:35:46 Problem Notes None recorded. Procedures Surgical History Date Name Laterality Status Provider Name and Address Organization Details Recorded Time 08/21/19 25 MJG Knee Injection w/o US completed Tino Petit MD [address], [place], [address], [place] [facility] 08/21/2024 09:03:44 07/02/20 24 ORTHOPAEDIC SURGERY - OTHER (SURG) completed Chinyere Hummel [place] - [facility] 07/03/2024 09:02:42 04/17/20 24 MJG Knee Injection w/o US completed Tino Petit MD [address] [facility],[address], [place], [address], [place] [facility] 04/17/2024 13:16:56 01/10/20 24 LES trigger finger/De Quervain's injection completed Marcela Chatterjee MD [address], [place], [address], [place] [facility] 01/10/2024 12:35:07 Knee Surgery completed Munira Whitehead [place] - [facility] 03/07/2023 11:46:15 TOTAL KNEE REPLACEMENT (SURG) completed Agustina Virk [place] - [facility] 02/27/2023 15:44:12 Imaging Results None recorded. Procedure Notes None recorded. Medical Equipment None Reported. Allergies No known drug allergies Medications Name Sig Start Date Stop Date Status Note LastModified by Organization Details LastModified Time losartan 50 mg tablet TAKE 1 TABLET BY MOUTH EVERY DAY 01/04 completed Not Available Not Available Not Available amoxicillin 500 mg capsule TAKE 4 CAPSULES ONE HOUR PRIOR TO DENTAL PROCEDURE active Not Available Not Available No t Available metformin 500 mg tablet TAKE 1 TABLET BY MOUTH TWICE A DAY WITH FOOD 03/13 completed Not Available Not Available Not Available trazodone 50 mg tablet TAKE 1 TO 3 TABLET BY MOUTH AT BEDTIME NEEDED FOR SLEEP 07/19 completed Not Available Not Available Not Available amiodarone 200 mg tablet TAKE 1 TABLET BY MOUTH EVERY DAY 02/19 completed Not Available Not Available Not Available metoprolol succinate ER 50 mg tablet,exte nded release 24 hr TAKE 1 TABLET BY MOUTH DAILY. TAKE IN ADDITION TO 25 MG TABLET FOR TOTAL DAILY DOSE OF 75 MG. active Not Available Not Available No t Available valacyclovi r 1 gram tablet TAKE 1 TABLET BY MOUTH THREE TIMES A DAY FOR 7 DAYS 01/04 completed Not Available Not Available Not Available meloxicam 15 mg tablet 05/31 completed Not Available Not Available Not Available FreeStyle Lancets 28 gauge USE 1 UNITS BY DOES NOT APPLY ROUTE DAILY. E11.49 active Not Available Not Available No t Available doxepin 10 mg capsule TAKE 1 CAPSULE BY MOUTH AT BEDTIME FOR 360 DAYS. 03/13 completed Not Available Not Available Not Available minoxidil 2.5 mg tablet TAKE ONE- HALF TABLET BY MOUTH DAILY active Not Available Not Available No t Available tramadol 50 mg tablet TAKE 1 TABLET BY MOUTH EVERY 8 HOURS NEEDED FOR PAIN 01/04 completed Not Available Not Available Not Available cefadroxil 500 mg capsule 05/31 completed Not Available Not Available Not Available lorazepam 0.5 mg tablet PLEASE SEE ATTACHED FOR DETAILED DIRECTION S 08/13 completed Not Available Not Available Not Available methocarbam ol 750 mg tablet 05/31 completed Not Available Not Available Not Available triamcinolo ne acetonide 0.025 % topical cream APPLY THIN AMOUNT AREAS OF ECZEMA ON GROIN AND UNDER BREAST FOR 7 DAYS WHEN NEEDED. active Not Available Not Available No t Available amiodarone 400 mg tablet 02/19 completed Not Available Not Available Not Available benzonatate 100 mg capsule TAKE 1 CAPSULE BY MOUTH 3 TIMES DAILY NEEDED FOR COUGH FOR UP TO 10 DAYS. 01/04 completed Not Available Not Available Not Available triamcinolo ne acetonide 40 mg/mL suspension for injection Take 40 mg by injection route. 2024 active Not Available Not Available Not Avai lable cephalexin 500 mg capsule TAKE 1 CAPSULE BY MOUTH THREE TIMES A DAY FOR 7 DAYS 05/25 completed Not Available Not Available Not Available metronidazo le 0.75 % topical cream APPLY IN THE MORNING AND AT NIGHT DAILY FOR REDNESS/R OSACEA 01/04 completed Not Available Not Available Not Available omeprazole 20 mg capsule,del ayed release TAKE 1 CAPSULE BY MOUTH EVERY DAY active Not Available Not Available No t Available montelukast 10 mg tablet TAKE 1 TABLET BY MOUTH EVERYDAY AT BEDTIME active Not Available Not Available No t Available zolpidem 5 mg tablet TAKE 1 TABLET BY MOUTH AT BEDTIME NEEDED FOR SLEEP. MAX DAILY AMOUNT: 5 MG 07/16 completed Not Available Not Available Not Available furosemide 20 mg tablet TAKE 1 TABLET BY MOUTH DAILY NEEDED FOR OTHER (LEG SWELLING) . active Not Available Not Available No t Available metoprolol succinate ER 25 mg tablet,exte nded release 24 hr TAKE 1 TABLET BY MOUTH DAILY. TAKE IN ADDITION TO 50 MG TABLET FOR TOTAL DAILY DOSE OF 75 MG. active Not Available Not Available No t Available zaleplon 5 mg capsule TAKE 1 CAPSULE BY MOUTH AT BEDTIME FOR 28 DAYS. active Not Available Not Available No t Available ondansetron 4 mg disintegrat ing tablet 05/31 completed Not Available Not Available Not Available cefdinir 300 mg capsule TAKE 1 CAPSULE BY MOUTH EVERY 12 HOURS FOR 7 DAYS 07/19 completed Not Available Not Available Not Available sertraline 50 mg tablet TAKE 1 TABLET BY MOUTH EVERY DAY active Not Available Not Available No t Available naproxen 500 mg tablet TAKE 1 TABLET BY MOUTH TWICE A DAY WITH MEALS FOR 30 DAYS 01/04 completed Not Available Not Available Not Available oxycodone 5 mg tablet TAKE 1 TABLET EVERY 4 TO 6 HOURS NEEDED FOR PAIN 07/16 completed Not Available Not Available Not Available ezetimibe 10 mg tablet TAKE 1 TABLET BY MOUTH EVERY DAY 2023 active Not Available Not Available Not Avai lable diltiazem ER 360 mg tablet,exte nded release 24 hr 07/19 completed Not Available Not Available Not Available azelaic acid 15 % topical gel APPLY TO AFFECTED AREAS 2 TIMES A DAY FOR ROSACEA ON FACE 07/16 completed Not Available Not Available Not Available Marcaine (PF) 0.5 % (5 mg/mL) injection solution Take 4 mL by injection route. 2024 active Not Available Not Available Not Avai lable metoprolol tartrate 25 mg tablet TAKE 1 TABLET BY MOUTH ONCE TAKE 10/14/22 EVENING ONE TIME DOSE. 01/04 completed Not Available Not Available Not Available ramelteon 8 mg tablet TAKE 1 TABLET BY MOUTH EVERYDAY AT BEDTIME 03/13 completed Not Available Not Available Not Available sodium fluoride 1.1 % dental paste PLEASE SEE ATTACHED FOR DETAILED DIRECTION S 01/04 completed Not Available Not Available Not Available lidocaine (PF) 10 mg/mL (1 %) injection solution Take 1 mL by injection route. 03/13 completed Not Available Not Available Not Available FreeStyle Lite Meter kit USE 1 KIT DIRECTED 04/17 completed Not Available Not Available Not Available FreeStyle Lite Strips USE 1 UNIT BY IN VITRO ROUTE DAILY. E11.49 active Not Available Not Available No t Available omeprazole 20 mg tablet,gage yed release 20 mg as needed by oral route. 2020 active Not Available Not Available Not Avai lable doxepin 3 mg tablet TAKE 1 TABLET BY MOUTH EVERY DAY AT BEDTIME NEEDED FOR INSOMNIA 07/19 completed Not Available Not Available Not Available roflumilast 500 mcg tablet TAKE 1 TABLET BY MOUTH EVERY DAY active Not Available Not Available No t Available Xarelto 10 mg tablet 07/19 completed Not Available Not Available Not Available lidocaine (PF) 100 mg/5 mL (2 %) injection syringe Take 4 mL by injection route. 2024 active Not Available Not Available Not Avai lable Xarelto 20 mg tablet TAKE 1 TABLET BY MOUTH EVERY DAY active Not Available Not Available No t Available naloxone 4 mg/actuatio n nasal spray TAKE BY NASAL ROUTE NEEDED 05/31 completed Not Available Not Available Not Available Trelegy Ellipta 100 mcg-62.5 mcg-25 mcg powder for inhalation INHALE 1 PUFF BY MOUTH DAILY active Not Available Not Available No t Available Tiadylt ER 240 mg capsule,ext ended release TAKE 1 CAPSULE BY MOUTH EVERY DAY 01/04 completed Not Available Not Available Not Available Trelegy Ellipta 200 mcg-62.5 mcg-25 mcg powder for inhalation INHALE 1 PUFF ONCE DAILY FOR 30 DAYS 01/04 completed Not Available Not Available Not Available Ozempic 1 mg/dose (4 mg/3 mL) subcutaneou s pen injector INJECT 1MG INTO THE SKIN ONCE A WEEK 05/14 completed Not Available Not Available Not Available Flowflex COVID-19 Antigen Home Test kit USE DIRECTED 01/04 completed Not Available Not Available Not Available Ozempic 2 mg/dose (8 mg/3 mL) subcutaneou s pen injector INJECT 2 MG INTO THE SKIN ONCE A WEEK. active Not Available Not Available No t Available Ozempic 0.25 mg or 0.5 mg (2 mg/3 mL) subcutaneou s pen injector INJECT 0.5 MG INTO THE SKIN EVERY 7 DAYS. 03/13 completed Not Available Not Available Not Available Vitals Date Recorded Body height Body mass index (BMI) Body weight Provider Name and Address Organization Details Last Updated DateTime 04/17/2024 182.88 cm 37.3 kg/m2 509740.9 g Jannet Yu [facility] 04/17/2024 12:56:35 Date Recorded Body height Body mass index (BMI) Body weight Provider Name and Address Organization Details Last Updated DateTime 05/14/2024 182.88 cm 37.3 kg/m2 294290.9 r[place] Goldpayam [facility], [facility] 05/14/2024 13:11:07 Date Recorded Body height Body mass index (BMI) Body weight Provider Name and Address Organization Details Last Updated DateTime 08/13/2024 182.88 cm 37.3 kg/m2 185812.9 r[place] Goldpayam [facility], [facility] 08/13/2024 13:15:47 Date Recorded Body height Provider Name an d Address Organization Details Last Updated DateTime 08/21/2024 182.88 cm Munira Keanees [facility], [facility] 08/21/2024 08:58:40 Social History Question Answer Notes LastModified by Organizat ion Details LastModified Time Tobacco Smoking Status Former Smoker Stan hernandez, [facility] 01/04/2023 10:20:30 What Is Your Level Of Alcohol Consumption? Occasional Information not available 01/04/2023 How Many Times Per Week Do You Consume Alcohol? Less Than 1 Time Per Week [email or web address] Information not available 03/29/2023 Are You Currently Employed? Yes [email or web address] Information not available 03/29/2023 Are You Deaf Or Do You Have Serious Difficulty Hearing? No [email or web address] Information not available 03/29/2023 Do You Or Have You Ever Used E-cigarettes Or Vape? Never Used Electronic Cigarettes [email or web address] Information not available 03/29/2023 Who Is Your Employer? 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 16+yearssincel astcigarette [email or web address] Information not available 05/31/2023 Do You Or Have You Ever Used Smokeless Tobacco? Never Used Smokeless Tobacco [email or web address] Information not available 03/29/2023 How Much Tobacco Do You Smoke? No [email or web address] Information not available 03/29/2023 Do You Use Any Illicit Or Recreational Drugs? No [email or web address] Information not available 01/04/2023 How Many Years Have You Smoked Tobacco? 40 Information not available 01/04/2023 Are You Currently In School? No [email or web address] Information not available 03/29/2023 Do You Or Have You Ever Used Any Other Forms Of Tobacco Or Nicotine? No [email or web address] Information not available 01/04/2023 Sex: Unknown Functional Status None recorded. Mental Status None recorded. Family History Relationship Description Onset Age of this Age Resolved Age Notes LastModified by Organization Details LastModified Time Brother Heart disease 40 [email or web address] Not available 14:25:55 Brother Hyperlipidem ia mminguela Not available 2022 11:00:31 Brother Hypertensive disorder mminguela Not available 2022 11:00:31 Brother Asthma 40 [email or web address] Not availa ble 03/29/2023 14:25:56 Sister Hypertensive disorder mminguela Not available 2022 11:00:31 Sister Scoliosis deformity of spine 50 [email or web address] Not available 14:25:56 Sister Asthma 70 [email or web address] Not availab le 03/29/2023 14:25:56 Sister Back problem 60 [email or web address] Not a vailable 03/29/2023 14:25:56 Mother Scoliosis deformity of spine [email or web address] Not available 10:21:59 Medical History Condition Response COPD Y Diabetes Y Asthma Y Reflux/GERD Y Hypertension Y Gynecological HistoryNo gynecological history recorded. Obstetrics History GPAL:G 0 P 0 0 0 0 Past Encounters Encounter ID Performer Location Encounter Start Date Encounter Closed Date Diagnosis/Indication Diagnosis SNOMED-CT Code Diagnosis ICD10 Code Diagnosis Note [id number] MD ABIGAIL Mathias[facility] pat [address] [place], [place] [address] [address] 01/04/2023 09:22:30 01/04/2023 10:36:48 Pain of left knee joint 1999808920 15222 M25.562 Osteoarthr itis of left knee joint 5239244171 54245 M17.12 Arthritis of knee 392307 002 M13.869 [id number] MD [facility] [address] [facility] [place] [address] 02/15/2023 09:01:59 02/15/2023 09:31:20 Pain in finger 16827013 M79.644 Digital mu cous cyst of right hand 2402662034 426647 M67.441 Osteoarthr itis of left knee joint 7714832307 74657 M17.12 [id number] [facility] [address] [address] 02/25/2023 11:04:59 02/25/2023 11:29:11 Osteoarthritis of left knee joint 7555778627 73091 M17.12 [id number] [facility] [address] [address] 03/07/2023 08:34:59 03/07/2023 09:25:35 Osteoarthritis of left knee joint 6300908956 15099 M17.12 History of left total knee replacement 2752948861 122869 Z96.652 Foot pain 55335245 M79.6 73 [id number] MD [facility] [address] [address] 03/29/2023 14:13:32 03/29/2023 14:48:22 History of left total knee replacement 2162006181 420462 Z96.652 Aftercare 376195784 Z47. 1 [id number] MD ABIGAIL Mathiasanalilia [address] [address] 05/31/2023 10:59:13 05/31/2023 11:34:54 History of left total knee replacement 2175385485 356624 Z96.652 Aftercare 042254786 Z47. 1 [id number] MD ABIGAIL Mathiasanalilia 299 [facility] [address] [place] [address] 07/19/2023 08:23:49 07/19/2023 08:51:30 History of left total knee replacement 5893309247 376431 Z96.652 Aftercare 608872440 Z47. 1 Pain of le ft knee joint 6858065557 73716 M25.562 [id number] Marcela Chatterjee MD [facility] 113 [facility] [address] [place] [address] 01/10/2024 11:08:50 01/10/2024 12:21:10 Pain in finger of right hand 0049924885 52084 M79.644 Additional diagnosis detail: Pain in right finger(s) Pain of left wrist 29285 48419 55830 M25.532 Additional diagnosis detail: Pain in left wrist Osteoarthr itis of finger joint of right hand 2774993281 7538289 M15.1 Additional diagnosis detail: Degenerati ve arthritis of distal interphala ngeal joint of little finger of right hand Radial sty loid tenosynovitis 70638153 M65.4 Additional diagnosis detail: Radial styloid tenosynovi tis [de quervain] [id number] MD ABIGAIL Garrido [facility] [address] [address] 02/20/2024 14:38:38 02/20/2024 15:27:07 Osteoarthritis of finger joint of right hand 9137328992 8671959 M15.1 [id number] MD ABIGAIL Mathiasanalilia [address] [address] 03/13/2024 09:45:02 03/13/2024 10:15:28 Surgical follow-up 100238904 Z47.1 Z96.652 Additional diagnosis detail: Aftercare following left knee joint replacemen t surgery [id number] MD ABIGAIL Mathias [facility] [address] [address] 04/17/2024 12:51:20 04/17/2024 13:17:01 Pain of right knee region 3463135468 96524 M25.561 Osteoarthr itis of right knee joint 4813969977 48822 M17.11 [id number] MD ABIGAIL Garrido [facility] 299 [facility] [address] [place] [address] 05/14/2024 13:06:18 05/14/2024 13:30:59 Osteoarthritis of finger joint of right hand 4271809157 8635349 M15.1 right small finger DIP joint arthritis [id number] [facility] 299 [facility] [address] [place] [address] 07/16/2024 13:13:40 07/16/2024 14:09:48 Osteoarthritis of finger joint of right hand 9239810411 4470783 M15.1 right small finger DIP joint arthritis [id number] [facility] [address] [address] 08/13/2024 12:50:30 08/13/2024 13:37:10 Osteoarthritis of finger joint of right hand 9548659504 3262234 M15.1 right small finger DIP joint arthritis [id number] MD [facility] [address] [address] 08/21/2024 08:51:00 08/21/2024 09:06:09 Osteoarthritis of right knee joint 4310740532 87589 M17.11 Health Concerns Section Related Observation LastModified by Organization Detai ls LastModified Time None Recorded Concern Status LastModified by Organization Details LastModified Time None Recorded Advance Directives Directive None Recorded Payers Encounter Date Sequence Insurance Name Policy Number Policy Hardy Covered Member ID Hardy Member ID Guarantor Name 04/17/2024 2 [employer] - [employer] [id number] Westley Noelt [id number] Aby Divide 04/17/2024 1 [place] [facility] Aby Walsh [id number] [place] Jillian 05/14/2024 2 [facility] [id number] Westley Hurleybot [id number] Aby Jillian 05/14/2024 1 [place] [facility] Aby Weston Jillian [id number] Aby Jillian 07/16/2024 2 [facility] [id number] Westley Mcnamara Divide [id number] Aby Divide 07/16/2024 1 [place] [facility] Aby A Divide [id number] Aby Divide 08/13/2024 2 [facility] [id number] Westley Mcnamara Jillian [id number] Aby Divide 08/13/2024 1 MEDICARE [facility]: [facility] Aby A Divide [id number] Aby Jillian 08/21/2024 2 [facility] [id number] Westley Mcnamara Divide [id number] Aby Divide 08/21/2024 1 MEDICARE [facility]: [facility] Aby A Divide [id number] Aby Jillian Notes Date Note Type Note Provider Name and Address Organization Details Recorded Time 05/14/2024 text/html She presents for follow-up of her right small finger DIP arthritis and left de Quervain's tenosynovitis, status post a injection on 01/10/2024. She has no more pain is related to the left wrist. She does want to discuss right small finger DIP joint fusion which was briefly discussed with her on our last visit. She notes pain continued at the right small finger DIP joint especially when she hits it and sometimes with movement.She has a past medical history significant for hypertension, A-fib status post an ablation June 2023 on Xarelto, diabetes on Ozempic, last A1c 5.8, COPD. She is a former smoker, she quit 16+ years ago, she does not currently use tobacco or nicotine products. She drinks occasional alcohol less than 1 time per week. She denies illicit drug use. 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 Marcela Chatterjee MD [address] [place] [address], [address], [place] - [facility] 05/14/2024 14:01:17 07/16/2024 text/html She presents for first postop follow-up visit status post right small finger DIP joint fusion, date of surgery 07/02/2024, she is 2 weeks postop. She has been compliant with splint wear and nonweightbearing restrictions. Her pain has been well-controlled. She denies any numbness or tingling. Marcela Chatterjee MD 299 [facility],[place] [address], [place], [address], [place] - [facility] 07/16/2024 14:11:40 08/13/2024 text/html She returns for postop follow-up status post right small finger DIP joint arthrodesis, date of surgery 07/02/2024, she is 6 weeks postop. She has been wearing DIP joint splint. She notes swelling and tenderness at the DIP joint. She denies any drainage or redness, fevers or chills. She is been working on range of motion of her PIP joint. Marcela Chatterjee MD 299 [facility] [address], [place], [address], [place] - [facility] 08/13/2024 13:33:31 OBGyn Episode No OBEpisode recorded.
--- OUTSIDE RECORDS SUMMARY | 2024-10-09 09:22 | XMS_ITS | Patient Health Record ---
[facility] Address [address] [place] [address] Care Team Providers Care Cost Accounting Analyst Name Role Phone Bogdan Rick MD Primary Care Provider Sariah Laird Unavailable [phone] Reason For Referral No Information Medications Medication SIG (Take, Route, Frequency, Duration) Notes Start Date End Date Status Singulair 10 MG 1 ORAL daily for -3 [facility] 01/26/2012 Active Lisinopril 20MG 1 ORAL daily for -3 [facility] 01/26/2012 Active Estrace Vaginal Cream 42.5GM Vaginal 1GM 2X A WEEK for -[address] [place] [address] 11/12/2013 Active Omeprazole 20MG 1 ORAL daily for -3 [facility] 01/26/2012 Active Advair Diskus 500-50 1 Inhalation TWICE DAILY for [address] 01/26/2012 Active Diflucan 150MG 1 ORAL Q 3 DAYS for [address] 04/07/2014 Active Ambien 10MG 1 ORAL at bedtime for [address] 08/29/2013 Active Lotrisone 1-0.05% 1 application to aff ected area External Twice a day, Appointment is needed for additonal refills, please call to schedule your appt [facility] 04/07/2014 Activ e Lotrisone 1-0.05 % 1 application to aff ected area Externally Twice a day 42.5gm tube, appointment needed. 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) Active confirmed Major Problem Obesity (002193328) Obesity, unspecified (278.00) Active confirmed Diag Problem Benign essential hypertension (4025375) Essential hypertension, benign (401.1) Active confirmed Major Problem Asthma (disorder) (971133610) Asthma, unspecified, unspecified status (493.90) Active confirmed Major Problem Esophageal reflux (747582061) Esophageal reflux (530.81) Active confirmed Major Problem Menopausal symptom (05749639) Symptomatic menopausal or female climacteric states (627.2) Active confirmed Major Problem Postmenopausal atrophic vaginitis (56550428) Postmenopausal atrophic vaginitis (627.3) Active confirmed Diag Problem Pruritus of genital organs (529558667) Pruritus of genital organs (698.1) Active confirmed Other Problem Gynecological examination normal (952118554061477) Routine gynecological examination (V72.31) Active confirmed Problem Dietary management surveillance (464599671) Dietary surveillance and counseling (V65.3) Active confirmed Diag Problem Screening for malignant neoplasm of colon (232083200) Special screening for malignant neoplasms, colon (V76.51) Active confirmed Major Plan Of Treatment Pending Test Test Name Order Date Mammogram, left breast 11/01/2014 Mammogram, right breast 11/01/2014 MAMMOGRAM, SCREENING 10/02/2014 Insurance Providers Payer Name Payer Address Payer Phone Subscriber Number Group Number Insured Name Patient Relationship to Insured Coverage Start Date Coverage End Date [facility] [address] [place] [address] [id number] JAYCEE MOOSE Self - patient is the insured Medical (General) History Medical History History ICD Code [id number]: Handling fee, Start date: , Active, , Proc Postmenopausal atrophic vaginitis 627.3 Obesity, unspecified 278.00 Asthma, unspecified, unspecified status 493.90 Esophageal reflux 530.81 Essential hypertension, benign 401.1 Symptomatic menopausal or female climact mustapha states 627.2 Pruritus of genital organs 698.1 Surgical History Surgery Date(Month/Year) Colonoscopy 2011 Dialation & Curettage Bilateral Eye Surgery Tonsillectomy Left Foot Surgery Knee Surgery Arthroscopic 05/13/14 Hospitalization History Reason Date(Month/Year) 2 Vaginal Deliveries See Surgical Hx
--- OUTSIDE RECORDS SUMMARY | 2024-10-09 09:22 | XMS_ITS | Clinical Summary ---
Author Organization [address] [place] [address] Address [address] [place] [address] Phone Care Team Providers Care Harness Preparer Name Role Phone Jose Arvizu Primary Care Provider [phone] Allergies No known active allergies Medications blood-glucose meter kit 1 Kit by Does not apply route Once. 03/19/2024 Active ezetimibe (ZETIA) 10 mg tablet Take 1 Tablet by mouth daily. 12/16/2023 Active FREESTYLE LANCETS MISC 1 Units by Does not apply route daily. E11.49 03/19/2024 Active furosemide (LASIX) 20 mg tablet Take 1 tablet (20 mg total) by mouth 1 (one) time each day. 12/06/2023 Active blood sugar diagnostic (FreeStyle Lite Strips) test strip 1 Units by In Vitro route daily. E11.49 03/19/2024 Active LORazepam (ATIVAN) 0.5 mg tablet Take 1 Tablet by mouth every 8 hours as needed for Anxiety for up to 10 days. Take 1 tablet as needed for anxiety/panic symptoms 05/07/2024 Active metoprolol succinate (TOPROL-XL) 25 mg 24 hr tablet Take 1 Tablet by mouth daily. Take in addition to 50 mg tablet for total daily dose of 75 mg. 06/19/2023 Active metoprolol succinate (TOPROL-XL) 50 mg 24 hr tablet Take 1 Tablet by mouth daily. Take in addition to 25 mg tablet for total daily dose of 75 mg. 06/19/2023 Active montelukast (SINGULAIR) 10 mg tablet Take 1 Tab by mouth at bedtime. Active folic acid/multivit-m in/lutein (CENTRUM SILVER ORAL) Take 1 Tab by mouth daily. Active omeprazole (PriLOSEC) [address] capsule Take 1 Capsule by mouth daily. 12/16/2023 Active rivaroxaban (XARELTO) 20 mg tablet Take 1 Tablet by mouth daily. 11/06/2023 Active sertraline (ZOLOFT) 50 mg tablet TAKE 1 TABLET BY MOUTH DAILY 12/06/2023 Active fluticasone-ume clidinium-vilan terol (Trelegy Ellipta) 100-62.5-25 mcg inhaler Take 1 Puff by mouth daily. 12/06/2023 Active triamcinolone (KENALOG) 0.025 % cream 08/22/2022 Active minoxidiL (LONITEN) 2.5 mg tablet Take 1 tablet (2.5 mg total) by mouth 1 (one) time each day. / a tablet Active Ozempic 2 mg/dose (8 mg/3 mL) injection pen INJECT 2 MG INTO THE SKIN ONCE A WEEK. 6 mL 1 06/29/2024 Active zolpidem (AMBIEN) 5 mg tabletIndicatio ns:G47.00 - Partial fill ok upon requestpatien t is going to pay [id number] Take 1 tablet (5 mg total) by mouth at bedtime as needed for sleep. Max Daily Amount: 5 mg 28 tablet 07/01/2024 Active roflumilast (DALIRESP) 500 mcg tablet Take 1 tablet (500 mcg total) by mouth 1 (one) time each day. 90 tablet 1 07/29/2024 Active zaleplon (SONATA) 5 mg capsule Take 1 capsule (5 mg total) by mouth at bedtime as needed for sleep. Take 1 Capsule by mouth at bedtime for 28 days. - Max Daily Amount: 5 mg 28 capsule 09/07/2024 Active tirzepatide (MOUNJARO) 2.5 mg/0.5 mL injectionIndica tions:Type 2 diabetes mellitus with obesity (CMS/HCC) Inject 0.5 mL (2.5 mg total) under the skin every 7 (seven) days. 6 mL 3 09/29/2024 Active Active Problems Problem Noted Date Diagnosed Date Atrial tachycardia 11/06/2023 SOB (shortness of breath) 11/06/2023 Palpitations 09/05/2023 Pericardial effusion 04/24/2023 Mixed hyperlipidemia 01/24/2023 Atrial flutter 08/09/2022 Diabetes mellitus 08/09/2022 Persistent atrial fibrillation 07/30/2022 Morbid obesity 10/26/2020 Insomnia 05/05/2018 Type 2 diabetes mellitus with obesity 02/13/2018 Obesity 03/22/2017 Venous insufficiency 03/22/2017 Overview (06/03/2024): Dr siegel laser treatments to both legs Anxiety 03/21/2017 Overview (06/03/2024): w/ sleep issues Asthma-COPD overlap syndrome 03/21/2017 Essential hypertension 03/21/2017 Hypercholesterolemia 03/21/2017 Osteoarthritis 03/21/2017 Varicose veins of lower extremity 03/21/2017 Overview (06/03/2024): Mild edema, L > R. Encounters Date Type Department Care Team Description 08/20/2024 2:00 PM EST Ancillary Procedure [facility] [address] [facility] [address] [place] [address] Varicose veins of lower extremity with pain, bilateral from Last 3 Months Immunizations Name Administration Dates Next Due Influenza Quadravalent, 0.5m l (Fluzone High-dose) 65yo and older 06/01/2024 Influenza trivalent, 0.5mL ( Fluad) 65yo and older 05/31/2023,05/18/2022,05/25/2021,06/13 Influenza trivalent, with pr eservative (Fluzone; Afluria) 6mo and older 04/25/2020 Influenza, Unspecified 06/13/2019 Influenza, live, intranasal, trivalent (FluMist) 2yo to less than 50yo 04/26/2017 Pfizer (ages 12 & older) Biv alent, COVID-19 04/28/2022 Pneumococcal conjugate 13 va lent (Prevnar 13, PCV13) 2mo and older 05/28/2019 Pneumococcal conjugate 20 va lent (Prevnar 20, PCV 20) 2mo and older 11/23/2022 Pneumococcal polysaccharide 23 valent (Pneumovax 23) 2yo and older 10/31/2017 RSV, bivalent, protein subun it RSVpreF, 0.5mL, Preservative Free (ABRYSVO) 60yo and older or 32 through 36 wks of 08/20/2023 RSV, bivalent, protein subun it RSVpreF, 0.5mL, Preservative Free (Arexvy) 60yo and older 08/20/2023 Tdap Tetanus diptheria acell ular pertussis (Boostrix; Adacel) 7yo and older 05/15/2017 Zoster recombinant (Shingrix ) 19yo and older 04/24/2019,02/25/2019 Surgical History Surgery Date Site/Laterality Comments KNEE SURGERY PROCEDURE:KNEE SURGERY HAND SURGERY PROCEDURE:HAND SURGERY KNEE SURGERY 05/22/2014 Right PROCEDURE: HISTORICAL KNEE SURGERY; COMMENT: [address] graham got gel shot to rt knee OTHER SURGICAL HISTORY PROCEDURE: HISTORY OTHER; COMMENT: left middle finger fx 2015 OTHER SURGICAL HISTORY PROCEDURE: HISTORY OTHER; COMMENT: bilat eye lid surg dr harris 2009 TONSILLECTOMY PROCEDURE: HISTORICAL TONSILLECTOMY OTHER SURGICAL HISTORY Left PROCEDURE: HISTORY OTHER; COMMENT: 2010 [facility] 2010 COLONOSCOPY 2018 PROCEDURE: HISTORICAL COLONOSCOPY; COMMENT: dr arreola BREAST LUMPECTOMY Left CARDIAC ABLATION CARPAL TUNNEL RELEASE KNEE ARTHROPLASTY Left Medical History Medical History Date Comments Diabetes mellitus (CMS/HCC) DX:D iabetes mellitus (HCC) Hypertension DX:Hypertension Asthma DX:Asthma COPD (chronic obstructive pu lmonary disease) (CMS/HCC) DX:COPD (chronic obstructive pulmonary disease) ([facility]) GERD (gastroesophageal reflux disease) DX:GERD (gastroesophageal reflux disease) HTN (hypertension) 03/21/2017 DX:HTN (hyper tension) Osteoarthritis 03/21/2017 DX:Osteoarthriti s Asthma 03/21/2017 DX:Asthma Varicose veins of lower extremity 03/21/2017 DX:Varicose veins of lower extremity Anxiety 03/21/2017 DX:Anxiety; COMM ENT: w/ sleep issues Hypercholesterolemia 03/21/2017 DX:Hypercho lesterolemia Allergy desensitization therapy 03/22/2017 DX:Allergy desensitization therapy 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 Venous insufficiency 03/22/2017 DX:Venous i nsufficiency; COMMENT: Dr siegel laser treatments to both legs Obesity 03/22/2017 DX:Obesity DM type 2 (diabetes mellitus , type 2) ([facility]) DX:DM type 2 (diabetes melli tus, type 2) ([facility]) History of atrial fibrillation Family History Medical History Relation Name Comments Hypertension Brother 1 Other: afib Brother 2 Hypertension Sister Relation Name Status Comments Brother 1 Brother 2 Sister Social History Tobacco Use Types Packs/Day Years Used Date Smoking Tobacco: Never Passive Smoke Exposure: Never Smokeless Tobacco: Never Tobacco Cessation:Counseling Given: Not Answered Alcohol Use Standard Drinks/Week Comments Yes 0 (1 standard drink = 0.6 oz pur e alcohol) rarley Comments Unknown Sex and Gender Information Value Date Recorded Sex Assigned at Female 07/02/2024 5:59 AM EST Legal Sex Female 7:53 AM EST Gender Identity Not on file Sexual Orientation Straight 07/02/2024 5: 59 AM EST Obstetrics History Last Filed Vital Signs Vital Sign Reading Time Taken Comments Blood Pressure 124/64 07/02/2024 9:29 AM EST Pulse 76 07/02/2024 9:29 AM EST Temperature 36.8 ??C (98.2 ??F) 07/02/2024 9:29 AM ES T Respiratory Rate 16 07/02/2024 9:00 AM EST Oxygen Saturation 98% 07/02/2024 9:29 AM EST Inhaled Oxygen Concentration - - Weight 126 kg (278 lb) 06/26/2024 9:09 AM EST Height 185.4 cm (6' 1 ) 06/26/2024 9:09 AM EST Body Mass Index 36.68 06/26/2024 9:09 AM EST Plan of Treatment Upcoming Encounters Date Type Department Care Team (Late st Contact Info) Description 11/13/2024 9:30 AM EDT Office Visit [facility] [address] [place] [address] Narcisa Porter PA [address] [place] [address] 11/18/2024 2:15 PM EDT Office Visit [facility] [address] [facility] [address] [place] [address] Kishore Rucker MD [address] [place] [address] 12/03/2024 9:45 AM EDT Office Visit Adult Medicine [facility] [address] [place], [place] [phone] May Sampson PA [address] [place], [place] Health Maintenance Due Date Last Done Comments Breast Cancer Screening 1955 Hepatitis A Vaccines (1 of 2 - Risk 2-dose series) 1973 Hepatitis B Vaccines (1 of 3 - Risk 3-dose series) 2014 Hepatitis C Screening 07/21/2022 Social Influencers of Health Screening 07/21/2022 COVID-19 Vaccine ( season) 2024 04/28/2022, 02/23/2022, 05/31/2021, Additional history exists Diabetes: Annual Retina Eye Exam 06/13/2024 06/13/2023 Diabetes: Blood Sugar Control Test (HGBA1C) 11/27/2024 05/29/2024, 05/29/2024, 01/28/2024 Diabetes: Annual Foot Exam 05/20/2025 05/20/2024 Diabetes: Annual Urine Albumin-Creatinine Ratio (uACR) 05/29/2025 05/29/2024 Diabetes: Annual GFR (Glomerular Filtration Rate) 05/29/2025 05/29/2024, 05/29/2024, 05/29/2024, Additional history exists Hypertension/CHF/CAD Annual BMP Blood Test 05/29/2025 05/29/2024, 05/29/2024, 05/29/2024, Additional history exists Depression Screening 06/01/2025 06/01/2024 Medicare Annual Wellness Visit 06/01/2025 06/01/2024 Falls Risk Assessment 07/02/2025 07/02/2024 DTaP,Tdap,and Td Vaccines (2 - Td or Tdap) 05/15/2027 05/15/2017 Colorectal Cancer Screening: Colonoscopy 01/29/2028 01/28/2018 Cholesterol Screening (Lipid Panel) 05/29/2029 05/29/2024, 05/29/2024, 01/28/2024 Osteoporosis Screening (Bone Density Screening) 09/20/2032 09/20/2022, 07/15/2020 Zoster Vaccines Completed 04/24/2019, 02/25/2019 Pneumococcal Vaccine: 50+ Years Completed 11/23/2022, 05/28/2019, 10/31/2017 RSV Immunization Patients 60+ Years Old Completed 08/20/2023, 08/20/2023 Influenza Vaccine Completed 06/01/2024, , 05/18/2022, Additional history exists HIB Vaccines Aged Out No longer eligi ble based on patient's age to complete this topic HPV Vaccines Aged Out No longer eligi ble based on patient's age to complete this topic IPV Vaccines Aged Out No longer eligi ble based on patient's age to complete this topic MMR Vaccines Aged Out No longer eligi ble based on patient's age to complete this topic Meningococcal ACWY Vaccine Aged Out N o longer eligible based on patient's age to complete this topic Meningococcal B Vacine Aged Out No lo nger eligible based on patient's age to complete this topic RSV Immunization Patients Under 20 months Aged Out No longer eligible based on patient's age to complete this topic Varicella Vaccines Aged Out No longer eligible based on patient's age to complete this topic Medical Devices Implanted Type Area Brokerage Coordinator Device Identifier Shelf Expiration Date Model / Serial / Lot Joints Knee Joints Knee Left: Knee Screw Arthrodesis 2.0 X 24 Mm Implanted:Qty: 1 on 07/02/2024 by Marcela Chatterjee MD at [facility] Right: [employer] [facility] 4 / N/A / N/A Procedures Procedure Name Priority Date/Time Associated Diagnosis Comments VAS US DUPLEX LOWER EXT VENOUS INSUFFICIENCY BILATERAL Routine 08/20/2024 2:43 PM EST Varicose veins of lower extremity with pain, bilateral DEPRESSION SCREENING Routine 06/01/2024 URINE ALBUMIN CREATININE RATIO Routine 05/29/2024 ANNUAL BMP BLOOD TEST Routine 05/29/2024 HEMOGLOBIN A1C Routine 05/29/2024 LIPID PANEL Routine 05/29/2024 DIABETES FOOT EXAM Routine 05/20/2024 DIABETES EYE EXAM Routine 06/13/2023 DXA BONE DENSITY STUDY 1+ SITS AXIAL SKEL Routine 09/20/2022 9:34 AM EST Typical atrial flutter (CMS/HCC) Type 2 diabetes mellitus without complications (CMS/HCC) Unspecified atrial fibrillation (CMS/HCC) Type 2 diabetes mellitus with other specified complication (CMS/HCC) Obesity, unspecified Essential (primary) hypertension Pure hypercholesterolemia, unspecified Chronic obstructive pulmonary disease, unspecified (CMS/HCC) Personal history of other endocrine, nutritional and metabolic disease Morbid (severe) obesity due to excess calories (CMS/HCC) Anxiety disorder, unspecified COLONOSCOPY Routine 01/28/2018 from Last 3 Months or Most Recently Relevant to Health Maintenance Results * Vascular US duplex lower extremity venous insufficiency bilateral (08/20/2024 2:43 PM EST) Right GSK shahram 0.37 cm CV VAS LAB Right GSDC shahram 0.33 cm CV VAS LAB Right GSMT shahram 0.25 cm CV VAS LAB Right GSPC shahram 0.24 cm CV VAS LAB Right GSPT shahrma 0.59 cm CV VAS LAB Right SFJ Diameter 0.78 cm CV VAS LAB Right SSMC shahram 0.32 cm CV VAS LAB Left GSDC shahram 0.29 cm CV VAS LAB Left GSPT shahram 0.49 cm CV VAS LAB Left SFJ Diameter 0.95 cm CV VAS LAB Left SSMC shahram 0.18 cm CV VAS LAB Left SSPC shahram 0.25 cm CV VAS LAB Right SPJ Diameter 0.38 cm CV VAS LAB Left SSMC reflux 2,483 ms CV VAS LAB Right SSPC shahram 0.40 cm CV VAS LAB Left GSDC reflux 2,333 ms CV VAS LAB Anatomical Region Laterality Modality Vascular, Abdomen Ultrasound Narrative 08/31/2024 2:48 PM EST Right: 1. ??The right lower extremity veins are compressible and there is no evidence of DVT in the right lower extremity venous system. 2. The GSV and SSV has no clinically significant reflux. 3. There is refluxing varcose vein branch from right GSV at the mid thigh with clinically significant reflux of 2.1 seconds, at the anterior aspect of the right knee with clinically significant reflux of 3.1 seconds, at the upper calf with clinically significant reflux of 3.4 seconds and at the right mid calf with clinically significant reflux of 1.39 seconds. Left: 1. ??The left lower extremity veins are compressible and there is no evidence of DVT in the left lower extremity venous system. 2. The GSV has clinically significant reflux of 2.3 seconds at the left lower calf. 3. The SSV has clinically significant reflux of 2.4 seconds at the mid SSV level. 4. There is refluxing varcose vein branch from left SSV in the left upper posterior calf with clinically significant reflux of 3.3 seconds. ??Also refluxing varicose vein from left GSV at the mid thigh has clinically significant reflux of 2.9 seconds, at the left knee area has clinically significant reflux of 3.14 seconds Right Lower Venous The common femoral, femoral, popliteal, greater and lesser saphenous veins were interrogated, demonstrating normal compressibility. Doppler signals were phasic and spontaneous. Right Venous Insufficiency Duplex The exam was performed with the patient in reverse Trendelenburg. Left Lower Venous The common femoral, femoral, popliteal, greater and lesser saphenous veins were interrogated, demonstrating normal compressibility. Doppler signals were phasic and spontaneous. Left Venous Insufficiency Duplex The exam was performed with the patient in reverse trendelenburg. Snow Maker Details A bills scale, color and doppler analysis ultrasound was performed. During the study longitudinal and transverse views were obtained. Pulsed wave doppler was performed. Result [facility] Narcisa NAZARIO CV VASCULAR PROCEDURES Final R esult * Depression Screening (06/01/2024) [facility] Depression Screening Abstracted Result [facility] HEALTH MAINTENANCE Final Result * Urine Albumin Creatinine Ratio (05/29/2024) [facility] Urine Albumin Creatinine Ratio Abstracted Result [facility] HEALTH MAINTENANCE Final Result * Annual BMP Blood Test (05/29/2024) [facility] Annual BMP Blood Test Abstracted Result [facility] MAINTENANCE Final Result * Hemoglobin A1c (05/29/2024) [facility] Hemoglobin A1C 5.8 <=6.5 % Blood Venous blood specimen / Unknown Result [facility] LAB BLOOD ORDERABLES Tabatha l Result * (ABNORMAL) Lipid panel (05/29/2024) [facility] LDL/HDL Ratio 5(A) 0 - 4 Triglycerides 122 0 - 150 mg/dL Cholesterol 236(A) 0 - 200 mg/dL HDL 46 >=40 mg/dL LDL Cholesterol 166(A) 0 - 100 mg/dL Blood Venous blood specimen / Unknown Result [facility] LAB BLOOD ORDERABLES Tabatha l Result * Diabetes Foot Exam (05/20/2024) [facility] Diabetes: Annual Foot Exam Abstracted Result [facility] HEALTH MAINTENANCE Final Result * Diabetes Eye Exam (06/13/2023) [facility] Diabetes: Annual Retina Eye Exam Abstracted Result [facility] HEALTH MAINTENANCE Final Result * DXA BONE DENSITY STUDY 1+ SITS AXIAL SKDUANE (09/20/2022 9:34 AM EST) Anatomical Region Laterality Modality Bone Densitometr y 08/24/2022 8:26 AM EST Narrative 09/20/2022 12:11 PM EST BONE DENSITY (DEXA) ? Lumbar Spine T-score is 3.2. ?? (SD relative to 20-29 y/o adult) Z-score is 5.2. ??(SD relative to age matched peers) This is considered normal by WHO criteria. Left Hip T-score is 0.1. Z-score is 1.8. This is considered normal by WHO criteria. IMPRESSION: This patient is considered to have normal bone density by WHO criteria. The [facility] Department of Internal Medicine recommends using National Osteoporosis Foundation (NOF) guidelines in treatment decisions related to osteoporosis. NOF guidelines suggest considering treatment for postmenopausal women and men aged 50 or older presenting with the following: History of hip or vertebral fracture. T-score = -2.5 (DXA) at the femoral neck, total hip, or spine, after appropriate evaluation to exclude secondary causes. Low bone mass (T-score between -1.0 and -2.5 at the femoral neck or spine) AND a 10-year probability of a hip fracture = 3% OR a 10-year probability of a major osteoporosis-related fracture = 20% based on the [place]-adapted WHO algorithm Please note that all treatment decisions require clinical judgment and consideration of individual patient factors, including patient preferences, co-morbidities, previous drug use, risk factors not captured in the FRAX model (e.g., frailty, falls, vitamin D deficiency, increased bone turnover, interval significant decline in bone density) and possible under- or over-estimation of fracture risk by FRAX. Optional alternative screening schedule based on angle Delcid., [facility] August 30, 2011 for patients with osteopenia (based on hip BMD T-score) is as follows: * ??advanced osteopenia (T scores -2.00 to -2.49), BMD testing every year * ??moderate osteopenia (T scores -1.50 to -1.99), BMD testing every 5 years mild osteopenia or normal BMD (T scores -1.50 and higher), BMD testing every 15 years Procedure Note Balbina García MD - 09/17/2023 BONE DENSITY (DEXA) Lumbar Spine T-score is 3.2. (SD relative to 20-29 y/o adult) Z-score is 5.2. (SD relative to age matched peers) This is considered normal by WHO criteria. Left Hip T-score is 0.1. Z-score is 1.8. This is considered normal by WHO criteria. IMPRESSION: This patient is considered to have normal bone density by WHO criteria. The [facility] Department of Internal Medicine recommendsusing National Osteoporosis Foundation (NOF) guidelines in treatment decisions related toosteoporosis. NOF guidelines suggest considering treatment for postmenopausal women and menaged 50 or older presenting with the following: History of hip or vertebral fracture. T-score = -2.5 (DXA) at the femoral neck, total hip, or spine, afterappropriate evaluation to exclude secondary causes. Low bone mass (T-score between -1.0 and -2.5 at the femoral neck or spine)AND a 10-year probability of a hip fracture = 3% OR a 10-year probability of a majorosteoporosis-related fracture = 20% based on the [place]-adapted WHO algorithm Please note that all treatment decisions require clinical judgment andconsideration of individual patient factors, including patient preferences, co- morbidities,previous drug use, risk factors not captured in the FRAX model (e.g., frailty, falls, vitaminD deficiency, increased bone turnover, interval significant decline in bone density) andpossible under- or over-estimation of fracture risk by FRAX. Optional alternative screening schedule based on angle Delcid., NEJMJanuary 2011 for patients with osteopenia (based on hip BMD T-score) is as follows: * advanced osteopenia (T scores -2.00 to -2.49), BMD testing every year * moderate osteopenia (T scores -1.50 to -1.99), BMD testing every 5years mild osteopenia or normal BMD (T scores -1.50 and higher), BMD testingevery 15 years Jose NAZARIO IMTiffanie DXA PROCEDURES Final Result * Colonoscopy (01/28/2018) Colonoscopy Abstracted, no interpretation Anatomical Region Laterality Modality Other Historical Provider MD HEALTH MAINTENANCE Final Result from Last 3 Months or Most Recently Relevant to Health Maintenance Insurance MEDICARE [facility] Advance Directives Documents on File Type Date Recorded Patient Clinical Nursing Coordinator Expl anation Health Care Decision (hx) 05/08/2023 HE ALTH CARE PROXY Health Care Decision (hx) 05/08/2023 HE ALTH CARE PROXY Health Care Decision (hx) 05/08/2023 HE ALTH CARE PROXY Health Care Decision (hx) 05/08/2023 HE ALTH CARE PROXY Health Care Decision (hx) 05/08/2023 HE ALTH CARE PROXY Health Care Decision (hx) 05/08/2023 HE [facility] C[facility] PROXY Health Care Decision (hx) 05/08/2023 HE [facility] C[facility] PROXY Care Teams Harness Preparer Relationship Specialty Start Date End Date Jose Arvizu PA [address] [place] [id number] PCP - General Internal Medicine 06/13/24
== END 2024-10-09 09:25 | disposition home or self-care (01) ==
PROVIDERS: PCP Physician Assistant Medical; Visit Provider Hospitalist
DX: R06.00 Dyspnea, unspecified (principal); J41.0 Simple chronic bronchitis; E88.01 Alpha-1-antitrypsin deficiency; M79.89 Other specified soft tissue disorders; R91.8 Other nonspecific abnormal finding of lung field; I48.0 Paroxysmal atrial fibrillation
CPT/HCPCS: 99214

== ENCOUNTER → 2024-10-09 08:58 | Outpatient (BNVA) | payer MEDICARE, OTHER, SELFPAY | PROVIDERS: PCP Physician Assistant Medical; Visit Provider Hospitalist | DX: J41.0 Simple chronic bronchitis (principal); E88.01 Alpha-1-antitrypsin deficiency; M79.89 Other specified soft tissue disorders; R91.8 Other nonspecific abnormal finding of lung field; I48.0 Paroxysmal atrial fibrillation | CPT/HCPCS: 99212 ==

== ENCOUNTER 2024-12-10 07:48 | Outpatient (REF) | payer MEDICARE, OTHER, SELFPAY ==
--- NOTE | ~2024-12-10 | CT_ITS ---
CLINICAL HISTORY: R91.8 - Other nonspecific abnormal finding of lung field CT chest without contrast Comparison: 06/14/2023 Findings: The heart size is normal. There is coronary arterial calcification. The visualized thyroid and mediastinum are otherwise unremarkable. The lungs are clear. The upper abdomen is unremarkable. The bones are intact. IMPRESSION: 1. No acute findings in chest CT. This document has been electronically signed by: Pascual Teran MD on 12/11/2024 08:49:52
--- OUTSIDE RECORDS SUMMARY | 2024-12-10 07:51 | XMS_ITS | Clinical Summary ---
Author Organization [facility] Address [address] [place] [address] Care Team Providers Care Catering Driver Name Role Phone Jose Arvizu PA-C Primary [...] age to complete this topic Care Teams Catering Driver Relationship Specialty Start Date End Date Jose Arvizu PA-C PCP - General Medical Services 07/23/22
--- OUTSIDE RECORDS SUMMARY | 2024-12-10 07:51 | XMS_ITS | Clinical Summary ---
Author Organization [address] [place] [address] Address [address] [place] [address] Phone Care Team Providers Care Biology Research Assistant Name Role Phone Jose Arvizu Primary Care Provider [phone] Allergies No known active allergies Medications blood-glucose meter kit 1 Kit by Does not apply route Once. 4 Active ezetimibe (ZETIA) 10 mg tablet Take 1 Tablet by mouth daily. 4 Active FREESTYLE LANCETS MISC 1 Units by Does not apply route daily. E11.49 4 Active furosemide (LASIX) 20 mg tablet Take 1 tablet (20 mg total) by mouth 1 (one) time each day. 4 Active blood sugar diagnostic (FreeStyle Lite Strips) test strip 1 Units by In Vitro route daily. E11.49 4 Active metoprolol succinate (TOPROL-XL) 25 mg 24 hr tablet Take 1 Tablet by mouth daily. Take in addition to 50 mg tablet for total daily dose of 75 mg. 3 Active metoprolol succinate (TOPROL-XL) 50 mg 24 hr tablet Take 1 Tablet by mouth daily. Take in addition to 25 mg tablet for total daily dose of 75 mg. 3 Active montelukast (SINGULAIR) 10 mg tablet Take 1 Tab by mouth at bedtime. Active folic acid/multivit-m in/lutein (CENTRUM SILVER ORAL) Take 1 Tab by mouth daily. Active omeprazole (PriLOSEC) [address] capsule Take 1 Capsule by mouth daily. 4 Active sertraline (ZOLOFT) 50 mg tablet TAKE 1 TABLET BY MOUTH DAILY 4 Active fluticasone-ume clidinium-vilan terol (Trelegy Ellipta) 100-62.5-25 mcg inhaler Take 1 Puff by mouth daily. 4 Active triamcinolone (KENALOG) 0.025 % cream 3 Active minoxidiL (LONITEN) 2.5 mg tablet Take 1 tablet (2.5 mg total) by mouth 1 (one) time each day. 1/2 a tablet Active roflumilast (DALIRESP) 500 mcg tablet Take 1 tablet (500 mcg total) by mouth 1 (one) time each day. 90 tablet 1 4 Active rivaroxaban (Xarelto) 20 mg tablet TAKE 1 TABLET BY MOUTH EVERY DAY 90 tablet 1 5 Active zaleplon (SONATA) 5 mg capsule Take 1 capsule (5 mg total) by mouth at bedtime as needed for sleep. Take 1 Capsule by mouth at bedtime for 28 days. - Max Daily Amount: 5 mg 28 capsule 5 Active tirzepatide (Mounjaro) 10 mg/0.5 mL injectionIndica tions:Type 2 diabetes mellitus with obesity (CMS/HCC V24, CMS/HCC V28) Inject 0.5 mL (10 mg total) under the skin every 7 (seven) days. 2 mL 5 5 Active sulfamethoxazol e-trimethoprim (BACTRIM DS,SEPTRA DS) 800-160 mg per tablet Take 1 tablet by mouth 2 (two) times a day for 7 days. 14 each 5 12/11/19 25 Active LORazepam (ATIVAN) 0.5 mg tablet Take 1 Tablet by mouth every 8 hours as needed for Anxiety for up to 10 days. Take 1 tablet as needed for anxiety/panic symptoms 4 04/24/20 25 Discontinu ed(Patient Discharge) Ozempic 2 mg/dose (8 mg/3 mL) injection pen INJECT 2 MG INTO THE SKIN ONCE A WEEK. 6 mL 1 4 12/04/19 Discontinu ed(Patient Discharge) tirzepatide (MOUNJARO) 5 mg/0.5 mL injectionIndica tions:Type 2 diabetes mellitus without complication, without long-term current use of insulin ([facility] V24, [facility] V28) Inject 0.5 mL (5 mg total) under the skin every 7 (seven) days. 2 mL 11 5 12/04/19 Discontinu ed(Patient Discharge) tirzepatide (MOUNJARO) 7.5 mg/0.5 mL injectionIndica tions:Type 2 diabetes mellitus with obesity ([facility] V24, [facility] V28) Inject 0.5 mL (7.5 mg total) under the skin every 7 (seven) days. 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 Menopausal symptom 12/03/2024 Postmenopausal atrophic vaginitis 12/03/2024 Pruritus of genital organs 12/03/2024 Osteoarthritis of finger of right hand Radial styloid tenosynovitis 01/10/2024 Atrial tachycardia ([facility] V24) 11/06/2023 SOB (shortness of breath) 11/06/2023 Palpitations 09/05/2023 Arthralgia of left knee 07/19/2023 History of total left knee replacement 3 Foot pain 03/07/2023 Digital mucous cyst of right hand 02/15/2023 Pain in finger 02/15/2023 Mixed hyperlipidemia 01/24/2023 Atrial flutter ([facility] V24, [facility] V28) 2021 Diabetes mellitus ([facility] V24[facility] V28[facility] Morbid obesity ([facility] V24, [facility] V28) 2020 Insomnia 05/05/2018 Type 2 diabetes mellitus wit h obesity ([facility] V24, [facility] V28) 02/13/2018 Obesity 03/22/2017 Venous insufficiency 03/22/2017 Overview (06/03/2024): Dr siegel laser treatments to both legs Anxiety 03/21/2017 Overview (06/03/2024): w/ sleep issues Asthma-COPD overlap syndrome (CMS/HCC V24, CMS/H CC V28) 03/21/2017 Essential hypertension 03/21/2017 Hypercholesterolemia 03/21/2017 Osteoarthritis 03/21/2017 Varicose veins of lower extremity 03/21/2017 Overview (06/03/2024): Mild edema, L > R. Acquired ptosis of eyelid 07/21/2010 Resolved Problems Problem Noted Date Diagnosed Date Resolved Date Pericardial effusion 04/24/2023 025 Persistent atrial fibrillati on (CMS/HCC V24, CMS/HCC V28) 07/30/2022 12/03/2024 Encounters Date Type Department Care Team Description 12/03/2024 9:45 AM EDT Office Visit Adult Medicine [address] [phone] May Sampson PA Essential hypertension (Primary Dx); Hypercholesterolemia; Type 2 diabetes mellitus with obesity (CMS/HCC V24, CMS/HCC V28); Persistent atrial fibrillation (CMS/HCC V24, CMS/HCC V28); Anxiety; Primary insomnia; Encounter for long-term (current) use of high-risk medication; Asthma-COPD overlap syndrome (CMS/HCC V24, CMS/HCC V28); Ulcer of right lower extremity with fat layer exposed (CMS/HCC V24, CMS/HCC V28) 12/03/2024 Telephone Adult Medicine [address] [phone] May Sampson PA 11/13/2024 9:30 AM EDT Office Visit [facility] - [place] [address] [place] [address] Narcisa Porter PA Varicose veins of lower extremity with pain, bilateral (Primary Dx); Morbid obesity ([facility] V24, [facility] V28) 11/07/2024 Telephone [facility] [address] [facility] [address] [place] [address] Kishore Rucker MD called pt to r/s her 11/18/[address] Rucker from Last 3 Months Immunizations Name Administration [...] HISTORY OTHER; COMMENT: left middle finger fx 2016 OTHER SURGICAL HISTORY PROCEDURE: HISTORY OTHER; COMMENT: bilat eye lid surg dr harris 2009 TONSILLECTOMY PROCEDURE: HISTORICAL TONSILLECTOMY OTHER SURGICAL HISTORY Left PROCEDURE: HISTORY OTHER; COMMENT: 2010 peteroff bunion surgery and hamertoe 2010 COLONOSCOPY 2018 PROCEDURE: HISTORICAL COLONOSCOPY; COMMENT: dr arreola BREAST LUMPECTOMY Left CARDIAC ABLATION CARPAL TUNNEL RELEASE KNEE ARTHROPLASTY Left Medical History Medical History Date Comments Diabetes mellitus ([facility] V 24, [facility] V28) DX:Diabetes mellitus ([facility]) Hypertension DX:Hypertension Asthma DX:Asthma COPD (chronic obstructive pu lmonary disease) ([facility] V24, [facility] V28) DX:COPD (chronic o bstructive pulmonary disease) ([facility]) GERD (gastroesophageal reflux disease) DX:GERD (gastroesophageal reflux disease) HTN (hypertension) 03/21/2017 DX:HTN (hyper tension) Osteoarthritis 03/21/2017 DX:Osteoarthriti s Asthma 03/21/2017 DX:Asthma Varicose veins of lower extremity 03/21/2017 DX:Varicose veins of lower extremity Anxiety 03/21/2017 DX:Anxiety; COMM ENT: w/ sleep issues Hypercholesterolemia 03/21/2017 DX:Hypercho lesterolemia Allergy desensitization therapy 03/22/2017 DX:Allergy desensitization therapy 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 03/22/2017 DX:History of ftlsk-6-idprew ypsin deficiency Venous insufficiency 03/22/2017 DX:Venous i nsufficiency; COMMENT: Dr siegel laser treatments to both legs Obesity 03/22/2017 DX:Obesity DM type 2 (diabetes mellitus , type 2) ([facility] V24, [facility] V28) DX:DM type 2 (diabetes leticia itus, type 2) ([facility]) History of atrial fibrillation Family History Medical [...] Sign Reading Time Taken Comments Blood Pressure 130/60 12/03/2024 9:39 AM EDT Pulse 78 12/03/2024 9:39 AM EDT Temperature 36.1 ??C (96.9 ??F) 12/03/2024 9:39 AM ED T Respiratory Rate 16 12/03/2024 9:39 AM EDT Oxygen Saturation 97% 12/03/2024 9:59 AM EDT Inhaled Oxygen Concentration - - Weight 129 kg (285 lb 6.4 oz) 12/03/2024 9:39 AM EDT Height 185.4 cm (6' 1 ) 12/03/2024 9:39 AM EDT Body Mass Index 37.65 12/03/2024 9:39 AM EDT Plan of Treatment Upcoming Encounters Date Type Department Care Team (Late st Contact Info) Description 12/22/2024 2:00 PM EDT Office Visit [facility] [address] [facility] [address] [place] [address] Kishore Rucker MD 300 [facility] [address] [place] [address] 03/11/2025 8:30 AM EDT Office Visit Adult Medicine [address] [phone] May Sampson PA [address] [place], [place] 05/14/2025 9:30 AM EDT Office Visit V[facility] Surgery - [place] [address] [facility] [address] [place] [phone] Narcisa Porter PA 300 [facility] [address] [place] [address] Health Maintenance Due Date Last Done Comments Hepatitis A Vaccines (1 of 2 - Risk 2-dose series) 1973 Hepatitis B Vaccines (1 of 3 - Risk 3-dose series) 2014 Hepatitis C Screening 07/21/2022 Social Influencers of Health Screening 07/21/2022 COVID-19 Vaccine ( season) 2024 04/28/2022, 02/23/2022, 05/31/2021, Additional history exists Diabetes: Annual Retina Eye Exam 06/13/2024 06/13/2023 Diabetes: Annual Foot Exam 05/20/2025 05/20/2024 Diabetes: Blood Sugar Control Test (HGBA1C) 05/22/2025 11/20/2024, 05/29/2024, 05/29/2024, Additional history exists Depression Screening 06/01/2025 06/01/2024 Medicare Annual Wellness Visit 06/01/2025 06/01/2024 Falls Risk Assessment 07/02/2025 07/02/2024 Diabetes: Annual Urine Albumin-Creatinine Ratio (uACR) 11/20/2025 11/20/2024, 05/29/2024 Diabetes: Annual GFR (Glomerular Filtration Rate) 11/20/2025 11/20/2024, 05/29/2024, 05/29/2024, Additional history exists Hypertension/CHF/CAD Annual BMP Blood Test 11/20/2025 11/20/2024, 05/29/2024, 05/29/2024, Additional history exists Breast Cancer Screening 01/29/2026 01/30/2024, 01/29 DTaP,Tdap,and Td Vaccines (2 - Td or Tdap) 05/15/2027 05/15/2017 Colorectal Cancer Screening: Colonoscopy 01/29/2028 01/28/2018 Cholesterol Screening (Lipid Panel) 11/20/2029 11/20/2024, 05/29/2024, 05/29/2024, Additional history exists Osteoporosis Screening (Bone Density Screening) 09/20/2032 09/20/2022, 07/15/2020 Zoster Vaccines Completed 04/24/2019, 02/25/2019 Pneumococcal Vaccine: 50+ Years Completed 11/23/2022, 05/28/2019, 10/31/2017 RSV Immunization Adult Patients Completed 08/20/2023, 08/20/2023 Influenza Vaccine Completed 06/01/2024, [...] age to complete this topic Meningococcal B Vaccine Aged Out No l onger eligible based on patient's age to complete this topic RSV Immunization Patients Under 20 months Aged Out No longer eligible based on patient's age to complete this topic Varicella Vaccines Aged Out No longer eligible based on patient's age to complete this topic Medical Devices Implanted Type Area Quality Control Inspector Device Identifier Shelf Expiration Date Model / Serial / Lot Joints Knee Joints Knee Left: Knee Screw Arthrodesis 2.0 X 24 Mm Implanted:Qty: 1 on 07/02/2024 by Marcela Chatterjee MD at [facility] Right: [employer] [facility]-2001 4 / N/A / N/A Procedures Procedure Name Priority Date/Time Associated Diagnosis Comments DRUG ABUSE SCREEN EXPANDED WITH REFLEX CONFIRMATION, URINE Routine 12/03/2024 10:49 AM EDT Encounter for long-term (current) use of high-risk medication CBC WITH AUTO DIFFERENTIAL Routine 11/20/2024 10:00 AM EDT Type 2 diabetes mellitus without complication, without long-term current use of insulin ([facility] V24, [facility] V28) LIPID PANEL WITH REFLEX TO DIRECT LDL Routine 11/20/2024 10:00 AM EDT Type 2 diabetes mellitus without complication, without long-term current use of insulin (CMS/[facility] V24, [facility] V28) MICROALBUMIN CREATININE URINE RATIO Routine 11/20/2024 10:00 AM EDT Type 2 diabetes mellitus without complication, without long-term current use of insulin (CMS/[facility] V24, [facility] V28) COMPREHENSIVE METABOLIC PANEL Routine 11/20/2024 10:00 AM EDT Type 2 diabetes mellitus without complication, without long-term current use of insulin (CMS/HCC V24, CMS/HCC V28) HEMOGLOBIN A1C Routine 11/20/2024 10:00 AM EDT Type 2 diabetes mellitus without complication, without long-term current use of insulin (CMS/HCC V24, CMS/HCC V28) CBC AND DIFFERENTIAL Routine 11/20/2024 10:00 AM EDT Type 2 diabetes mellitus without complication, without long-term current use of insulin (CMS/HCC V24, CMS/HCC V28) DEPRESSION SCREENING Routine 06/01/2024 DIABETES FOOT EXAM Routine 05/20/2024 MG MAMMO DIGITAL DIAGNOSTIC BILAT Routine 01/30/2024 3:06 PM EDT DIABETES EYE EXAM Routine 06/13/2023 DXA BONE DENSITY STUDY 1+ SITS AXIAL SKEL Routine 09/20/2022 9:34 AM EST Typical atrial flutter (CMS/HCC V24, CMS/HCC V28) Type 2 diabetes mellitus without complications (CMS/HCC V24, CMS/HCC V28) Unspecified atrial fibrillation (CMS/HCC V24, CMS/HCC V28) Type 2 diabetes mellitus with other specified complication (CMS/HCC V24, CMS/HCC V28) Obesity, unspecified Essential (primary) hypertension Pure hypercholesterolemia, unspecified Chronic obstructive pulmonary disease, unspecified (CMS/HCC V24, CMS/HCC V28) Personal history of other endocrine, nutritional and metabolic disease Morbid (severe) obesity due to excess calories (CMS/HCC V24, CMS/HCC V28) Anxiety disorder, unspecified COLONOSCOPY Routine 01/28/2018 from Last 3 Months or Most Recently Relevant to Health Maintenance Results * Drug abuse screen expanded with reflex confirmation, urine (12/03/2024 10:49 AM EDT) Pathologist [facility] Amphetamine Screen, Ur Negative Negative LAB CHEMISTRY METHOD 12/03/2024 2:[address] [facility] Comment:Certain OTC medicati ons containing ephedrine, phenylephrine, pseudoephedrine and phenylpropanolamine can cause false positive results. Barbiturate Screen, Ur Negative Negative LAB CHE[facility]STR[facility] Benzodiazepine Screen, Ur Negative Negative LAB CHEMISTRY METHOD 12/03/2024 2:[address] [facility] Cocaine Screen, Ur Negative Negative LAB CHEMISTRY METHOD 12/03/2024 2:[address] [facility] Opiate Screen, Ur Negative Negative LAB CHEMISTRY METHOD 12/03/2024 2:[address] [facility] Cannabinoid (THC) Screen, Ur Negative Negative LAB CHEMISTRY METHOD 12/03/2024 2:[address] [facility] Comment:Specimens from patie nts taking pantoprazole sodium (Protonix) have been shown to produce false positive results. Fentanyl, Ur Negative Negative LAB CHEMISTRY METHOD 12/03/2024 2:[address] [facility] Oxycodone Screen, Ur Negative Negative LAB CHEMISTRY METHOD 12/03/2024 2:[address] [facility] Urine Urine specimen obtained by clean catch procedure / Unknown Non-blood Collection / Unknown 12/03/2024 10:49 AM EDT 12/03/2024 10:49 AM EDT [facility] - 12/03/2024 2:29 PM EDT Assay cutoffs: Amphetamines ? 1000 ng/mL Barbiturates ?200 ng/mL Benzodiazepines ?? 200 ng/mL Cocaine ? 300 ng/mL Fentanyl ?1 ng/mL Opiates ? 300 ng/mL Oxycodone ? 100 ng/mL THC ?50 ng/mL Semi-quantitative assay for screening purposes only. Unconfirmed screening result should not be used for non-medical purposes. *POSITIVE RESULTS ARE AUTOMATICALLY SENT FOR ALTERNATE METHOD CONFIRMATION* May NAZARIO LAB URINE ORDERABLES Final Resul t Performing Organization Address City/[facility] Co de Phone Number [facility] [address] [place] [address], [place] [phone] * (ABNORMAL) Lipid panel with reflex to direct LDL (11/20/2024 10:00 AM EDT) Cholesterol 211(H) 0 - 200 mg/dL LAB CHEMISTRY METHOD 11/20/2024 1:13 PM EDT [facility] Triglycerides 148 0 - 150 mg/dL LAB CHEMISTRY METHOD 11/20/2024 1:13 PM EDT [facility] HDL 46 >=40 mg/dL LAB CHEMISTRY METHOD 11/20/2024 1:13 PM EDT [facility] LDL Calculated 135(H) 0 - 100 mg/dL LAB CHEMISTRY METHOD 11/20/2024 1:13 PM EDT [facility] VLDL Cholesterol Power 29.6 mg/dL LAB CHEMISTRY METHOD 11/20/2024 1:13 PM T [facility] Non HDL Chol. (LDL+VLDL) 165(H) <145 mg/dL LAB CHEMISTRY METHOD 11/20/2024 1:13 PM T [facility] Chol/HDL Ratio 4.6(H) 0.0 - 4.4 LAB CHEMISTRY METHOD 11/20/2024 1:13 PM T [facility] Blood Venous blood specimen / Unknown Venipuncture / Unknown 11/20/2024 10:00 AM EDT 11/20/2024 10:00 AM EDT Jose NAZARIO LAB BLOOD ORDERABLES Tabatha l Result [facility] [address] [place] [address], * (ABNORMAL) CBC auto differential (11/20/2024 10:00 AM EDT) [facility] WBC 9.8 4.8 - 10.8 K/mcL LAB HEMETOLOGY METHOD 11/20/2024 12:15 PM EDT [facility] RBC 4.60 3.80 - 4.80 M/mcL LAB HEMETOLOGY METHOD 11/20/2024 12:15 PM EDT [facility] Hemoglobin 13.9 11.5 - 16.0 g/dL LAB HEMETOLOGY METHOD 11/20/2024 12:15 PM EDT [facility] Hematocrit 43.0 35.0 - 47.0 % LAB HEMETOLOGY METHOD 11/20/2024 12:15 PM EDT [facility] MCV 94.1 79.0 - 98.0 FL LAB HEMETOLOGY METHOD 11/20/2024 12:15 PM EDT [facility] MCH 30.4 27.0 - 32.0 pcg LAB HEMETOLOGY METHOD 11/20/2024 12:15 PM EDT [facility] MCHC 32.3 32.0 - 37.0 g/dL LAB HEMETOLOGY METHOD 11/20/2024 12:15 PM EDT [facility] RDW 13.4 11.0 - 15.0 % LAB HEMETOLOGY METHOD 11/20/2024 12:15 PM EDT [facility] Platelets 237 130 - 400 K/mcL LAB HEMETOLOGY METHOD 11/20/2024 12:15 PM EDT [facility] MPV 11.3(H) 7.0 - 11.0 FL LAB HEMETOLOGY METHOD 11/20/2024 12:15 PM EDT [facility] NRBC 0.0 <1.0 % LAB HEMETOLOGY METHOD [facility]/20[facility]20[facility] NRBC Absolute 0.00 <0.10 K/mcL LAB HEMETOLOGY METHOD 11/20/2024 12:[address] [facility] Neutrophils Relative 70.7 % LAB HEMETOLOGY METHOD 11/20/2024 12:[address] [facility] Lymphocytes Relative 19.3 % LAB HEMETOLOGY METHOD 11/20/2024 12:[address] [facility] Monocytes Relative 7.4 % LAB HEMETOLOGY METHOD 11/20/2024 12:[address] [facility] Eosinophils Relative 1.6 % LAB HEMETOLOGY METHOD 11/20/2024 12:[address] [facility] Basophils Relative 0.6 % LAB HEMETOLOGY METHOD 11/20/2024 12:[address] [facility] Immature Granulocytes Relative 0.4 % LAB HEMETOLOGY METHOD 11/20/2024 12:[address] [facility] Neutrophils Absolute 6.92 1.50 - 7.00 K/mcL LAB HEMETOLOGY METHOD 11/20/2024 12:[address] [facility] Lymphocytes Absolute 1.89 1.00 - 5.00 K/mcL LAB HEMETOLOGY METHOD 11/20/2024 12:[address] [facility] Monocytes Absolute 0.72 0.20 - 1.00 K/mcL LAB HEMETOLOGY METHOD 11/20/2024 12:[address] [facility] Eosinophils Absolute 0.16 0.00 - 0.50 K/mcL LAB HEMETOLOGY METHOD 11/20/2024 12:[address] [facility] Basophils Absolute 0.06 0.00 - 0.20 K/mcL LAB HEMETOLOGY METHOD 11/20/2024 12:[address] [facility] Immature Granulocytes Absolute 0.04(H) 0.00 - 0.03 K/mcL LAB HEMETOLOGY METHOD 11/20/2024 12:15 PM EDT [facility] Blood Venous blood specimen / Unknown Venipuncture / Unknown 11/20/2024 10:00 AM EDT 11/20/2024 10:00 AM EDT Jose NAZARIO LAB BLOOD ORDERABLES Tabatha l Result Performing Organization Address City/[facility]/ZIP Co de Phone Number [facility] [address] [place] [address], [place] [phone] * Microalbumin creatinine urine ratio (11/20/2024 10:00 AM EDT) Creatinine, Urine 161.0 mg/dL LAB CHEMISTRY METHOD 11/20/2024 1:06 PM EDT [facility] Microalb, Ur 8.1 0.0 - 29.0 mg/L LAB CHEMISTRY METHOD 11/20/2024 1:06 PM EDT [facility] Microalb/Creat Ratio 5 <30 mg/g creat LAB CHEMISTRY METHOD 11/20/2024 1:06 PM EDT [facility] Urine Urine specimen obtained by clean catch procedure / Unknown Non-blood Collection / Unknown 11/20/2024 10:00 AM EDT 11/20/2024 10:00 AM EDT Jose NAZARIO LAB URINE ORDERABLES Tabatha l Result Performing Organization Address City/[facility]/ZIP Co de Phone Number [facility] [address] [place] [address], [place] [phone] * Hemoglobin A1c (11/20/2024 10:00 AM EDT) Hemoglobin A1C 5.7 <6.5 % LAB CHEMISTRY METHOD 11/20/2024 6:[address] [facility] Mean Bld Glu Estim. 117 mg/dL LAB CHEMISTRY METHOD 11/20/2024 6:[address] [facility] Blood Venous blood specimen / Unknown Venipuncture / Unknown 11/20/2024 10:00 AM EDT 11/20/2024 10:00 AM EDT Jose NAZARIO LAB BLOOD ORDERABLES Tabatha l Result [facility] [address] [place] [address], * (ABNORMAL) Comprehensive metabolic panel (11/20/2024 10:00 AM EDT) Sodium 137 133 - 145 mmol/L LAB CHEMISTRY METHOD 11/20/2024 1:[address] [facility] Potassium 4.1 3.5 - 5.5 mmol/L LAB CHEMISTRY METHOD 11/20/2024 1:[address] [facility] Chloride 105 96 - 110 mmol/L LAB CHEMISTRY METHOD 11/20/2024 1:[address] [facility] CO2 27 21 - 32 mmol/L LAB CHEMISTRY METHOD 11/20/2024 1:[address] [facility] Anion Gap 5 3 - 11 LAB CHEMISTRY METHOD 11/20/2024 1:[address] [facility] Glucose 102(H) 70 - 100 mg/dL LAB CHEMISTRY METHOD 11/20/2024 1:[address] [facility] BUN 19 5 - 25 mg/dL LAB CHEMISTRY METHOD 11/20/2024 1:[address] [facility] Creatinine 0.63 0.50 - 1.10 mg/dL LAB CHEMISTRY METHOD 11/20/2024 1:[address] [facility] eGFR 96 >=60 mL/min/1. 73m2 LAB CHEMISTRY METHOD 11/20/2024 1:13 PM T [facility] Comment:Calculation based on the??Chronic Kidney Disease Epidemiology Collaboration (CKD-EPI) equation refit??without adjustment for race. BUN/Creatinine Ratio 30.2 LAB CHEMISTRY METHOD 11/20/2024 1:13 PM T [facility] Calcium 9.6 8.5 - 10.5 mg/dL LAB CHEMISTRY METHOD 11/20/2024 1:[address] [facility] AST (SGOT) 23 10 - 42 unit/L LAB CHEMISTRY METHOD 11/20/2024 1:[address] [facility] ALT (SGPT) 26 10 - 60 unit/L LAB CHEMISTRY METHOD 11/20/2024 1:[address] [facility] Alkaline Phosphatase 99 42 - 121 unit/L LAB CHEMISTRY METHOD 11/20/2024 1:[address] [facility] Total Protein 7.3 6.0 - 8.0 g/dL LAB CHEMISTRY METHOD 11/20/2024 1:[address] [facility] Albumin 3.8 3.2 - 5.0 g/dL LAB CHEMISTRY METHOD 11/20/2024 1:[address] [facility] Total Bilirubin 0.7 0.0 - 1.4 mg/dL LAB CHEMISTRY METHOD 11/20/2024 1:[address] [facility] Blood Venous blood specimen / Unknown Venipuncture / Unknown 11/20/2024 10:00 AM EDT 11/20/2024 10:00 AM EDT us Jose NAZARIO LAB BLOOD ORDERABLES Tabatha webb Result [facility] [address] [place] [address], * Depression Screening (06/01/2024) [facility] Depression Screening Abstracted [facility] Provider HEALTH MAINTENANCE Final Result * Diabetes Foot Exam (05/20/2024) [facility] Diabetes: Annual Foot Exam Abstracted [facility] Provider HEALTH MAINTENANCE Final Result * MG Mammo Digital Diagnostic bilat (01/30/2024 3:06 PM EDT) Anatomical Region Laterality Modality Breast Bilateral Mammography Result [facility] Provider IMG BI PROCEDURES Final R esult * Diabetes Eye Exam (06/13/2023) [facility] Diabetes: Annual Retina Eye Exam Abstracted Result [facility] Provider [facility] EMERGENCY [facility]PART[facility] Final Result * DXA BONE DENSITY STUDY 1+ SITS AXIAL SKEL (09/20/2022 9:34 AM EST) Anatomical Region Laterality [...] normal bone density by WHO criteria. The [facility] Department of Internal Medicine recommends [...] alternative screening schedule based on angle Delcid., [facility] August 30, 2011 for patients with osteopenia [...] normal bone density by WHO criteria. 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
--- OUTSIDE RECORDS SUMMARY | 2024-12-10 07:51 | XMS_ITS | Data Portability ---
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 Pathology instructed prognosis were discussed. Treatment options include continue with conservative treatment, activity modifications, dyqp-kbd-eklaywr medications, or consideration for DIP joint fusion. 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 Will schedule surgery [...] degrees. The knees are stable within those iidxfc-pl-ikjyce. The alignment of the right knee is [...] at that time. Not available 08/21/2024 09:05:16 11/13/2024 11/13/2024 HPI : Patient is here for about 1 week of left knee pain around 2 years from left total knee replacement. She states she felt some instability symptoms. She did not report an inciting event. There was minimally increased swelling. She has been walking without an assist device. She states before that last week she was doing well. She does not report recent illness. Physical Exam : Patient is well nourished, well- developed, in no acute distress, with appropriate mood and affect. The patient is AAOx3. The patient demonstrates good left knee motion and strength. The incision is well healed. Range of motion is 0 to 110 degrees today. The knee is stable to varus and valgus stress. There is no significant swelling or erythema. Assessment/Plan : Patient had 1 week of increased pain next to left total knee replacement. Exam, imaging, and history do not show any signs of implant related issues including loosening, malposition, instability, periprosthetic fracture, or infection. I think this is likely soft tissue related in nature. Patient was reassured. I expect symptoms to improve. She will wear an gtlh-yqu-spffiot sleeve. If she does not get improvement over the next couple weeks she will call and I think we will get ESR and CRP. She will let us know. Otherwise I will see her at her set follow-up in January. [email or web address] Not available 11/13/2024 15:18:20 Plan of Treatment Reminders Order Date Submit Date Provider Last Modified By Organization Details Last Modified Time Details Appointments ESTABLISH ED/SAME PROBLEM 2024 01:15P M Marcela whitley MD Not available Not available Not available FOLLOW UP 2024 08:45A M Tino Petit MD Not available Not available Not available Lab None recorded. Referral None recorded. Procedures None recorded. Surgeries orthopaed ic surgery - other (SURG) 2023 024 [facility], [address], [place], [address], 07/03/2024 09:02:27 Imaging XR, knee, 3 view 2024 025 [email or web address] [facility], [address], [place], [address], 11/13/2024 15:16:55 XR, finger(s) , 2 or more view 2024 025 [email or web address] [facility], [address], [place], [address], 08/13/2024 15:54:48 XR, finger(s) , 2 or more view 2023 024 [facility], [address], [place], [address], 07/16/2024 14:11:58 Medication Orders Marcaine (PF) 0.5 % (5 mg/mL) injection solution 2024 025 [id number], [address] [place], [address], 08/21/2024 09:39:13 lidocaine (PF) 100 mg/5 mL (2 %) injection syringe 2024 025 [id number], [address] [facility], [place], [address], 08/21/2024 09:39:13 triamcino lone acetonide 40 mg/mL suspensio n for injection 2024 025 [id number], [address] [facility], [address], 08/21/2024 09:39:13 Patient TargetsNo targets recorded. Patient Instructions Encounter Date Encounter Id Patient Instructions Last Modified By Organization Details Last Modified Time 05/14/2024 [id number] views of the right small finger ordered on 01/10/2024 reveal for review and interpreted today, this demonstrates DIP joint arthritis with joint space narrowing and osteophyte formation. There is no significant angular deformity or subluxation. Maintained joint space at the PIP and MP joint. Good mineralization of the bones. Not available 05/14/2024 13:59:42 07/16/2024 [id number] Views of the rig ht small finger were ordered and reviewed today, this demonstrates hardware in place without evidence of migration or failure. There is excellent alignment of the distal phalanx on the middle phalanx. No acute findings noted. Not available 07/16/2024 14:10:18 08/13/2024 [id number] 3 views of the right small finger [...] Organization Details Recorded Time Pain in finger 14521775 Active 2022 Hannah Suárez null, [place] [facility] 09:08:49 Digital mucous cyst of right hand 6613128146773 103 Active 2022 LATHA GREY PA-C [address], [place], [address], [place] [facility] 3 09:35:27 Foot pain 82872179 Active 2022 MILDRED GONSALEZ PA-C [address], [place], [address], [place] [facility] 3 09:13:22 History of left total knee replacement 6875278932409 105 Active 2022 Tino Petit MD [address], [place], [address], [place] [facility] 3 14:45:53 Pain of left knee joint 2875967063764 07 Active 2022 Tino Petit MD [address], [place], [address], [place] [facility] 3 08:47:19 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 5841689520865 9104 Active 2023 Marcela whitley MD [address], [place], [address], [place] [facility] 4 12:40:33 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 Procedures Surgical History Date Name Laterality Status Provider Name and Address Organization Details Recorded Time 08/21/19 25 MJG Knee Injection w/o US completed Tino Petit MD [address] [facility],[address], [place], [address], [place] [facility] 08/21/2024 09:03:44 07/02/20 24 ORTHOPAEDIC SURGERY - OTHER (SURG) completed Chinyere Hummel [place] [facility] 07/03/2024 09:02:42 04/17/20 24 MJG Knee Injection w/o US completed Tino Petit MD [address] [facility],[address], [place], [address], [place] [facility] 04/17/2024 13:16:56 01/10/20 24 LES trigger finger/De Quervain's injection completed Marcela Chatterjee MD [address], [place], [address], [place] [facility] 01/10/2024 12:35:07 Knee Surgery completed Munira Whitehead [place] - [facility] 03/07/2023 11:46:15 TOTAL KNEE REPLACEMENT (SURG) completed Agustina Virk [place] [facility] 02/27/2023 15:44:12 Imaging Results None recorded. [...] completed Not Available Not Available Not Available doxycycline hyclate 100 mg capsule TAKE 1 CAPSULE BY MOUTH EVERY DAY FOR 10 DAYS active Not Available Not Available No t Available trazodone 50 mg tablet TAKE 1 [...] completed Not Available Not Available Not Available hydroquinon e 4 % topical cream PLEASE SEE ATTACHED FOR DETAILED DIRECTION S active Not Available Not Available No t Available FreeStyle Lancets 28 gauge USE 1 UNITS BY DOES NOT APPLY ROUTE DAILY. E11.49 active Not Available Not Available No t Available doxepin 10 mg capsule TAKE 1 CAPSULE BY MOUTH AT BEDTIME FOR 360 DAYS. 03/13 completed Not Available Not Available Not Available minoxidil 2.5 mg tablet 2.5 tablets every day by oral route. 2024 active Not Available Not Available Not Avai lable tramadol 50 mg tablet TAKE 1 TABLET [...] TABLET BY MOUTH EVERY DAY AT BEDTIME active Not Available Not Available [...] zaleplon 5 mg capsule TAKE 1 CAPSULE (5 MG TOTAL) BY MOUTH AT BEDTIME NEEDED FOR SLEEP active Not Available Not Available No t [...] Available Not Available Not Available amoxicillin 500 mg-potassiu m clavulanate 125 mg tablet TAKE 1 TABLET BY MOUTH TWICE A DAY active Not Available Not Available No t Available oxycodone 5 mg tablet TAKE 1 TABLET EVERY 4 TO 6 HOURS NEEDED FOR PAIN 07/16 completed Not Available Not Available Not Available ezetimibe 10 mg tablet TAKE 1 TABLET BY MOUTH EVERY DAY active Not Available Not Available No t Available diltiazem ER 360 mg tablet,exte nded release [...] completed Not Available Not Available Not Available Multi For Her active Not Available Not Available Not Available roflumilast 500 mcg tablet TAKE 1 TABLET (500 MCG TOTAL) BY MOUTH 1 (ONE) TIME EACH DAY. active Not Available Not Available No t [...] MG INTO THE SKIN ONCE A WEEK. 11/12 completed Not Available Not Available Not Available Mounjaro 7.5 mg/0.5 mL subcutaneou s pen injector 2024 active Not Available Not Available Not Avai lable Mounjaro 5 mg/0.5 mL subcutaneou s pen injector INJECT 0.5 ML (5 MG TOTAL) UNDER THE SKIN EVERY 7 DAYS active Not Available Not Available No t Available Mounjaro 2.5 mg/0.5 mL subcutaneou s pen injector INJECT 0.5 ML (2.5 MG TOTAL) UNDER THE SKIN EVERY 7 DAYS active Not Available Not Available No t Available Ozempic 0.25 mg or 0.5 mg (2 mg/3 mL) subcutaneou s pen injector INJECT 0.5 MG INTO THE SKIN EVERY 7 DAYS. 03/13 completed Not Available Not Available Not Available Vitals Date Recorded Body height Body mass index (BMI) Body weight Provider Name and Address Organization Details Last Updated DateTime 05/14/2024 182.88 cm 37.3 kg/m2 092368.[address] [place] [facility] 05/14/2024 13:11:07 Date Recorded Body height Body mass index (BMI) Body weight Provider Name and Address Organization Details Last Updated DateTime 08/13/2024 182.88 cm 37.3 kg/m2 663526.[address] [place] [facility] 08/13/2024 13:15:47 Date Recorded Body height Provider Name an d Address Organization Details Last Updated DateTime 08/21/2024 182.[address] [place] [facility] 08/21/2024 08:58:40 Date Recorded Body height Body mass index (BMI) Body weight Provider Name and Address Organization Details Last Updated DateTime 11/13/2024 182.88 cm 37.3 kg/m2 323883.[address] [place] [facility] 11/13/2024 14:47:46 Social History Question Answer Notes LastModified by Organizat ion Details LastModified Time Tobacco Smoking Status Former Smoker Stan Skymejia hernandez, [place] [facility] 01/04/2023 10:20:30 What Is Your Level Of Alcohol Consumption? Occasional [email or web address] Information not available 01/04/2023 How Many Times Per Week Do You Consume Alcohol? Less Than 1 Time Per Week [email or web address] Information not available 03/29/2023 Are You Currently Employed? Yes [email or web address] Information not available 03/29/2023 Are You Deaf Or Do You Have Serious Difficulty Hearing? No [email or web address] Information not available 03/29/2023 Do You Or Have You Ever Used E-cigarettes Or Vape? Never Used Electronic Cigarettes [email or web address] Information not available 03/29/2023 Who Is Your Employer? 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 15+yearssinnikita valencia Information not available 05/31/2023 Do You Or Have You Ever Used Smokeless Tobacco? Never Used Smokeless Tobacco [email or web address] Information not available 03/29/2023 How Much Tobacco Do You Smoke? No [email or web address] Information not available 03/29/2023 Do You Use Any Illicit Or Recreational Drugs? No [email or web address] Information not available 01/04/2023 How Many Years Have You Smoked Tobacco? 40 [email or web address] Information not available 01/04/2023 Are You Currently In School? No [email or web address] Information not available 03/29/2023 Do You Or Have You Ever Used Any Other Forms Of Tobacco Or Nicotine? No [email or web address] Information not available 01/04/2023 Sex: Unknown Functional Status None recorded. Mental Status None recorded. Family History Relationship Description Onset Age of this Age Resolved Age Notes LastModified by Organization Details LastModified Time Brother Heart disease 40 [email or web address] Not available 14:25:55 Brother Hyperlipidem ia [email or web address] Not available 2022 11:00:31 Brother Hypertensive disorder [email or web address] Not available 2022 11:00:31 Brother Asthma 40 [email or web address] Not availa ble 03/29/2023 14:25:56 Sister Hypertensive disorder [email or web address] Not available 2022 11:00:31 Sister Scoliosis deformity of spine 50 [email or web address] Not available 14:25:56 Sister Asthma 70 [email or web address] Not availab le 03/29/2023 14:25:56 Sister Back problem 60 [email or web address] Not a vailable 03/29/2023 14:25:56 Mother Scoliosis deformity of spine [email or web address] Not available 10:21:59 Medical History Condition Response Coronary Artery Disease N Gout N Hyperthyroidism N MRSA N Blood Transfusion N Emphysema N Depression Y COPD Y Hypothyroidism N Pacemaker N Vascular Disease N Gastrointestinal Disease N Anxiety Disorder N Autoimmune disease N Arthritis Y Cancer N Stroke N High Cholesterol Y Neurologic Disorder N Liver Disease N Organ Transplant N Rheumatoid Arthritis N Arrhythmia Y Fibromyalgia N Kidney Disease N Allergies/Hayfever N Adverse Reaction to Anesthesia N Thyroid Problems N Anemia N Brain Injury N Heart Attack (MD) N Osteopenia N Diabetes Y Bleeding Disorder N Seizures/Epilepsy N AIDS/HIV N Congestive Heart Failure (CHF) N Asthma Y Amputation N Reflux/GERD Y Sleep Apnea N Hepatitis N Aneurysm N Heart Disease Y Hypertension Y Osteoporosis N Gynecological HistoryNo gynecological history recorded. Obstetrics History GPAL:G 0 P 0 0 0 0 Past Encounters Encounter ID Performer Location Encounter Start Date Encounter Closed Date Diagnosis/Indication Diagnosis SNOMED-CT Code Diagnosis ICD10 Code Diagnosis Note [id number] MD ABIGAIL Mathias [address] [place] [address] [address] [facility] [place] [address] 01/04/2023 09:22:30 01/04/2023 10:36:48 Pain of left knee joint 5876165255 61557 M25.562 Osteoarthr itis of left knee joint 6480976241 56792 M17.12 Arthritis of knee 627863 002 M13.869 [id number] [facility] [address] [facility] [place] [address] 02/15/2023 09:01:59 02/15/2023 09:31:20 Pain in finger 19696026 M79.644 Digital mu cous cyst of right hand 5097906568 441329 M67.441 Osteoarthr itis of left knee joint 0027151205 78386 M17.12 [id number] MERLENE MANNanalilia [address] [place] [address] 02/25/2023 11:04:59 02/25/2023 11:29:11 Osteoarthritis of left knee joint 3119607829 84484 M17.12 [id number] MERLENE RAMIREZ [facility] [address] [place] [address] 03/07/2023 08:34:59 03/07/2023 09:25:35 Osteoarthritis of left knee joint 5806312780 22284 M17.12 History of left total knee replacement 8865116613 819008 Z96.652 Foot pain 75875943 M79.6 73 [id number] MD ABIGAIL Mathias [address] [place] [address] 03/29/2023 14:13:32 03/29/2023 14:48:22 History of left total knee replacement 1295718078 100741 Z96.652 Aftercare 831590417 Z47. 1 [id number] MD ABIGAIL Mathiasanalilia [address] [place] [address] 05/31/2023 10:59:13 05/31/2023 11:34:54 History of left total knee replacement 3563163277 338082 Z96.652 Aftercare 307263352 Z47. 1 [id number] MD ABIGAIL Mathias [address] [address] 07/19/2023 08:23:49 07/19/2023 08:51:30 History of left total knee replacement 2849830299 319420 Z96.652 Aftercare 677360927 Z47. 1 Pain of le ft knee joint 8272749749 56338 M25.562 [id number] MD ABIGAIL Garrido [place] [address] [facility] [address] [place] [address] 01/10/2024 11:08:50 01/10/2024 12:21:10 Pain in finger of right hand 2244365654 77193 M79.644 Additional diagnosis detail: Pain in right finger(s) Pain of left wrist 97721 11202 71846 M25.532 Additional diagnosis detail: Pain in left wrist Osteoarthr itis of finger joint of right hand 2418898726 1874552 M15.1 Additional diagnosis detail: Degenerati ve arthritis of distal interphala ngeal joint of little finger of right hand Radial sty loid tenosynovitis 46012566 M65.4 Additional diagnosis detail: Radial styloid tenosynovi tis [de quervain] [id number] MD ABIGAIL Garridoanalilia [address] [address] 02/20/2024 14:38:38 02/20/2024 15:27:07 Osteoarthritis of finger joint of right hand 0092850204 2630971 M15.1 [id number] MD ABIGAIL Mathias [facility] [address] [address] 03/13/2024 09:45:02 03/13/2024 10:15:28 Surgical follow-up 897374736 Z47.1 Z96.652 Additional diagnosis detail: Aftercare following left knee joint replacemen t surgery [id number] MD ABIGAIL Mathias [facility] [address] [address] 04/17/2024 12:51:20 04/17/2024 13:17:01 Pain of right knee region 6053276742 80746 M25.561 Osteoarthr itis of right knee joint 2580255136 53918 M17.11 [id number] MD ABIGAIL Garrido [facility] 299 [facility] [address] [facility] [place] [address] 05/14/2024 13:06:18 05/14/2024 13:30:59 Osteoarthritis of finger joint of right hand 7045920860 0738899 M15.1 right small finger DIP joint arthritis [id number] MD ABIGAIL Garrido [facility] 299 [facility] [address] [facility] [place] [address] 07/16/2024 13:13:40 07/16/2024 14:09:48 Osteoarthritis of finger joint of right hand 1981834963 1570151 M15.1 right small finger DIP joint arthritis [id number] MD ABIGAIL Garrido [facility] 299 [facility] [address] [facility] [place] [address] 08/13/2024 12:50:30 08/13/2024 13:37:10 Osteoarthritis of finger joint of right hand 8923651786 1198273 M15.1 right small finger DIP joint arthritis [id number] MD ABIGAIL Mathias [facility] [address] [place] [address] 08/21/2024 08:51:00 08/21/2024 09:06:09 Osteoarthritis of right knee joint 6774320657 48063 M17.11 [id number] MD ABIGAIL Mathias [address] [address] 11/13/2024 14:43:16 11/13/2024 15:16:54 History of left total knee replacement 3994317080 537588 Z96.652 Surgical follow-up 12009 4000 Z47.1 Z96.652 Health Concerns Section Related Observation LastModified by Organization Detai ls LastModified Time None Recorded Concern Status LastModified by Organization Details LastModified Time None Recorded Advance Directives Directive None Recorded Payers Encounter Date Sequence Insurance Name Policy Number Policy Hardy Covered Member ID Hardy Member ID Guarantor Name 05/14/2024 1 [place]ICARE B-[place]: [facility] [employer] Aby Walsh [id number] Aby Walsh 05/14/2024 2 [facility] [id number] Westley Hurleybot [id number] Aby Jillian 07/16/2024 1 [place] [facility] SERVICES Aby [place] Jillian [id number] [place]by [place] 07/16/2024 2 [facility] IN[facility] - UNICARE [id number] Westley Mcnamara [place] [id number] Aby [place] 08/13/2024 1 [place] [facility] SERVICES Aby A Jillian [id number] Aby [place] 08/13/2024 2 [facility] IN[facility] - UNICARE [id number] Westley Mcnamara Jillian [id number] Aby Jillian 08/21/2024 1 [place] [facility] SERVICES Aby A Jillian [id number] 4 Aby [place] 08/21/2024 2 [facility] INDEMNITY PLAN - UNICARE [id number] Westley Mcnamara Jillian [id number] Aby Jillian 11/13/2024 1 [place]IC[place]: [facility] Aby A Jillian [id number] Aby [place] 11/13/2024 2 [facility] INDEMNITY PLAN - UNICARE [id number] Westley Mcnamara [place] [id number] Aby Jillian Notes Date Note Type Note [...] illicit drug use. 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 Marcela Chatterjee MD [address] [facility] [address], [place], [address], [place] [facility] 05/14/2024 14:01:17 07/16/2024 text/html She presents for first postop follow-up visit status post right small finger DIP joint fusion, date of surgery 07/02/2024, she is 2 weeks postop. She has been compliant with splint wear and nonweightbearing restrictions. Her pain has been well-controlled. She denies any numbness or tingling. Marcela Chatterjee MD [address] [facility],[address] [address], [place], [address], [place] [facility] 07/16/2024 14:11:40 08/13/2024 text/html She returns [...] her PIP joint. Marcela Chatterjee MD [address] [facility] [address], [place], [address], [place] [facility] 08/13/2024 13:33:31 OBGyn Episode No OBEpisode recorded.
--- OUTSIDE RECORDS SUMMARY | 2024-12-10 07:51 | XMS_ITS | Patient Health Record ---
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 Name Role Phone Bogdan Rick MD Primary Care Provider Sariah Laird Unavailable [phone] Reason For Referral No Information Medications Medication SIG (Take, Route, Frequency, Duration) Notes Start Date End Date Status Singulair 10 MG 1 ORAL daily for -3 [facility] 01/26/2012 Active Lisinopril 20MG 1 ORAL daily for -3 [facility] 01/26/2012 Active Estrace Vaginal Cream 42.5GM Vaginal 1GM 2X A WEEK for -[address] [place] [address] 11/12/2013 Active Omeprazole 20MG 1 ORAL daily for -3 [facility] 01/26/2012 Active Advair Diskus 500-50 1 Inhalation TWICE DAILY for 3 [facility] 01/26/2012 Active Diflucan 150MG 1 ORAL Q 3 DAYS for [address] 04/07/2014 Active Ambien 10MG 1 ORAL at bedtime for [address] 08/29/2013 Active Lotrisone 1-0.05% 1 application to aff ected area External Twice a day, Appointment is needed for additonal refills, please call to schedule your appt [facility] 04/07/2014 Activ e Lotrisone 1-0.05 % 1 application to aff ected area Externally Twice a day 42.5gm tube, appointment needed. 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) Active confirmed Major Problem Obesity (041085965) Obesity, unspecified (278.00) Active confirmed Diag Problem Benign essential hypertension (3407162) Essential hypertension, benign (401.1) Active confirmed Major Problem Asthma (disorder) (956111625) Asthma, unspecified, unspecified status (493.90) Active confirmed Major Problem Esophageal reflux (380217640) Esophageal reflux (530.81) Active confirmed Major Problem Menopausal symptom (31930194) Symptomatic menopausal or female climacteric states (627.2) Active confirmed Major Problem Postmenopausal atrophic vaginitis (61128349) Postmenopausal atrophic vaginitis (627.3) Active confirmed Diag Problem Pruritus of genital organs (251993518) Pruritus of genital organs (698.1) Active confirmed Other Problem Gynecological examination normal (008933136165061) Routine gynecological examination (V72.31) Active confirmed Problem Dietary management surveillance (893813118) Dietary surveillance and counseling (V65.3) Active confirmed Diag Problem Screening for malignant neoplasm of colon (766458232) Special screening for malignant neoplasms, colon (V76.51) Active confirmed Major Plan Of Treatment Pending Test Test Name Order Date Mammogram, left breast 11/01/2014 Mammogram, right breast 11/01/2014 MAMMOGRAM, SCREENING 10/02/2014 Insurance Providers Payer Name Payer Address Payer Phone Subscriber Number Group Number Insured Name Patient Relationship to Insured Coverage Start Date Coverage End Date [facility] [address] [place] [address] [id number] JAYCEE MOOSE Self - patient is the insured Medical (General) History Medical History History ICD Code [id number]: Handling fee, Start date: , Active, , [...]
[2024-12-10 09:17] LABS: Alanine Aminotransferase 24 U/L (0-31); Alkaline Phosphatase 85 U/L (39-117); Anion Gap 13 (12-20); Aspartate Amino Transferase 26 U/L (5-31); Bilirubin Direct 0.1 mg/dL (0.0-0.5); Bilirubin Total 0.4 mg/dL (0.0-1.0); Blood Urea Nitrogen 17 mg/dL (9-16); Calcium 9.7 mg/dL (8.4-10.2); Carbon Dioxide 26 mmol/L (22-29); Chloride 106 mmol/L (96-108); Estimated Glomerular Filt Rate > 60; Glucose Random 99 mg/dL (60-115); Potassium 4.7 mmol/L (3.3-5.1); Sodium 140 mmol/L (135-145); Total Protein 7.1 g/dL (6.5-8.0)
[2024-12-11 10:54] LABS: Alpha 1 Anti-trypsin 112 mg/dL (83-199)
== END 2024-12-10 07:49 | disposition home or self-care (01) ==
LOC: HO.CT 07:48
PROVIDERS: PCP Physician Assistant Medical; Visit Provider Hospitalist
DX: R91.8 Other nonspecific abnormal finding of lung field (principal); E88.01 Alpha-1-antitrypsin deficiency
CPT/HCPCS: 36415; 71250; 80048; 80076; 82103

== ENCOUNTER → 2024-12-10 07:49 | Outpatient (BNV) | payer MEDICARE, OTHER, SELFPAY | PROVIDERS: PCP Physician Assistant Medical; Visit Provider Specialist | DX: R91.8 Other nonspecific abnormal finding of lung field (principal) | CPT/HCPCS: 71250 ==